=== PATIENT | female | born 1985 | race African-American/Black ===

== ENCOUNTER 2016-05-08 18:22 | Inpatient (IN) | payer OTHER ==
[2016-05-08 20:11] VITALS: BMI 27.6
--- NOTE | 2016-05-08 20:12 | HP ---
Admission [facility] Chief Complaint: REHAB Allergies/Adverse Reactions: Allergies Allergy/AdvReac Type Severity Reaction Status Date / Time No Known Allergies Allergy Verified 05/08/16 20:10 History of Present Illness: 31 Y.O. FEMALE SEEKING REHAB. THE PATIENT REPORTS SHE HAS HAD ISSUES WITH ALCOHOL, COCAINE AND MARIJUANA ABUSE FOR THE LAST YEAR. Exam Limitations: No Limitations - Ebola screening Have you traveled outside of the country in the last 21 days: No (N) Have you had contact with anyone from an Ebola affected area: No Do you have a fever: No - Review of Systems Constitutional: No Symptoms Reported EENT: reports: No Symptoms Reported Respiratory: reports: No Symptoms reported Cardiac: reports: No Symptoms Reported GI: reports: No Symptoms Reported : reports: No Symptoms Reported Musculoskeletal: reports: No Symptoms Reported Integumentary: reports: No Symptoms Reported Neuro: reports: No Symptoms reported Endocrine: reports: No Symptoms Reported Hematology: reports: No Symptoms Reported Psychiatric: reports: Depressed, other (BIPOLAR) Other Systems: Reviewed and Negative Patient History - Patient Medical History Hx Anemia: No Hx Asthma: No Hx Chronic Obstructive Pulmonary Disease (COPD): No Hx Cancer: No Hx Cardiac Disorders: No Hx Congestive Heart Failure: No Hx Hypertension: No Hx Hypercholesterolemia: No Hx Pacemaker: No HX Cerebrovascular Accident: No Hx Seizures: No Hx Dementia: No Hx Diabetes: No Hx Gastrointestinal Disorders: No Hx Liver Disease: No Hx Genitourinary Disorders: No Hx Sexually Transmitted Disorders: No Hx Renal Disease (ESRD): No Hx Thyroid Disease: No Hx Human Immunodeficiency Virus (HIV): No (NEG HX ) Hx Hepatitis C: No Hx Depression: Yes (ON MEDS ) Hx Suicide Attempt: No Hx Bipolar Disorder: Yes (ON MEDS) Hx Schizophrenia: No - Patient Surgical History Past Surgical History: Yes Hx Neurologic Surgery: No Hx Cataract Extraction: No Hx Cardiac Surgery: No Hx Lung Surgery: No Hx Breast Surgery: No Hx Breast Biopsy: No Hx Abdominal Surgery: No Hx Appendectomy: No Hx Cholecystectomy: No Hx Genitourinary Surgery: No Hx Section: Yes (NOVEMBER 2015) Hx Orthopedic Surgery: No Hx Hysterectomy: No Anesthesia Reaction: No - PPD History Previous Implant?: Yes Documented Results: Negative w/o proof Implanted On Prior [facility] Admission?: No PPD to be Administered?: Yes - Reproductive History Patient is a Female of Child Bearing Age (11 -55 yrs old): Yes Last Menstrual Period: 05/08/16 Patient : No - Smoking Cessation Smoking history: Current every day smoker Aproximately how many cigarettes per day: 40 Hx Chewing Tobacco Use: No Initiated information on smoking cessation: Yes 'Breaking Loose' booklet given: 05/08/16 - Substance & Tx. History Hx Alcohol Use: Yes Hx Substance Use: Yes Substance Use Type: Alcohol, Cocaine, Marijuana Hx Substance Use Treatment: Yes (REHAB ) - Substances Abused Alcohol Route: Oral Frequency: Daily Amount used: $5-10 ON LIQUOR Age of first use: 14 Date of Last Use: 05/08/16 Cocaine Route: Inhalation Frequency: 1-2 times per week Amount used: $20 Age of first use: 25 Date of Last Use: 04/30/16 Marijuana/Hashish Route: Smoking Frequency: Daily Amount used: $35 Age of first use: 12 Date of Last Use: 05/08/16 Family Disease History - Family Disease History Family History: Unremarkable Admission Physical Exam BHS - Vital Signs Vital Signs: Last Vital Signs Temp Pulse Resp BP Pulse Ox 96.1 F L 88 20 138/81 05/08/16 20:24 05/08/16 20:24 05/08/16 20:24 05/08/16 20:24 - Physical General Appearance: Yes: No Apparent Distress, Nourished, Appropriately Dressed HEENTM: Yes: Within Normal Limits Respiratory: Yes: Chest Non-Tender, Lungs Clear, Normal Breath Sounds, No Respiratory Distress, No Accessory Muscle Use Neck: Yes: Within Normal Limits Breast: Yes: Breast Exam Deferred Cardiology: Yes: Regular Rhythm, Regular Rate, S1, S2 Abdominal: Yes: Normal Bowel Sounds, Non Tender, Flat Genitourinary: Yes: Within Normal Limits Back: Yes: Normal Inspection Musculoskeletal: Yes: full range of Motion, Gait Steady Extremities: Yes: Normal Inspection, Normal Range of Motion, Non-Tender Neurological: Yes: Fully Oriented, Alert, Normal Mood/Affect, Normal Response Integumentary: Yes: Normal Color, Dry, Warm Lymphatic: Yes: Within Normal Limits - Diagnostic (1) Alcohol dependence with uncomplicated withdrawal Current Visit: Yes Status: Chronic (2) Cocaine dependence, uncomplicated Current Visit: Yes Status: Chronic (3) Cannabis dependence, uncomplicated Current Visit: Yes Status: Chronic (4) Nicotine dependence Current Visit: Yes Status: Chronic Qualifiers: Nicotine product type: cigarettes Cleared for Admission [facility] - Detox or Rehab [facility] Level of Care: Observation Bed Claeared for Rehab Admission: Yes [facility] Breath Alcohol Content Breath Alcohol Content: 0.057 Vital Signs - Vital Signs Vital Signs Refused: No Temperature: 96.1 F Temperature Source: Oral Pulse Rate: 88 Respiratory Rate: 20 Blood Pressure: 138/81 BP Location: Left Arm Blood Pressure Position: Sitting - Height Height: 5 ft 5 in - Weight Weight: 166 lb Weight Measurement Method: Standing Scale Body Mass Index (BMI): 27.6 Urine Pregancy Test - Control Horizontal Line in Upper Control Window?: Yes
[2016-05-08] MEDS ORDERED: guaiFENesin/D-METHORPHAN HB 10 ML UNIT-DOSE CUPS PO PRN (20:24)
[2016-05-08] MEDS ORDERED: MAGNESIUM CITRATE 300 ML BOTTLE PO PRN (20:24)
[2016-05-08] MEDS ORDERED: diphenhydrAMINE HCL 50 MG CAPSULE PO PRN (20:24)
[2016-05-08] MEDS ORDERED: LOPERAMIDE HCL 2 MG CAPSULE PO PRN (20:24)
[2016-05-08] MEDS ORDERED: hydrOXYzine PAMOATE 50 MG CAPSULE (FP) PO PRN (20:24)
[2016-05-08] MEDS ORDERED: P-EPHED 60MG/TRIPROLIDI 2.5MG TABLET PO PRN (20:24)
[2016-05-08] MEDS ORDERED: ACETAMINOPHEN 325 MG TABLET (FP) PO PRN (20:24)
[2016-05-08] MEDS ORDERED: MAG HYDROX/AL HYDROX/SIMETH 30 ML UNIT-DOSE CUP PO PRN (20:24)
[2016-05-08] MEDS ORDERED: MENTHOL/PHENOL 1 EACH UD MM PRN (20:24)
[2016-05-08] MEDS: THIAMINE HCL 100 MG TABLET (FP) PO SCH (23:01)
[2016-05-09 09:52] LABS: URINE APPEARANCE CLEAR; URINE BILIRUBIN NEGATIVE (NEGATIVE); URINE COLOR YELLOW; URINE GLUCOSE (UA) NEGATIVE (NEGATIVE); URINE KETONE NEGATIVE (NEGATIVE); URINE LEUK ESTERASE NEGATIVE (NEGATIVE); URINE NITRITE NEGATIVE (NEGATIVE); URINE PROTEIN NEGATIVE (NEGATIVE); URINE UROBILINOGEN 2.0 E.U/dl E.U./dl (0.2-1.0)
[2016-05-09 10:03] LABS: MCHC 32.6 g/dl (32.0-36.0); MEAN CELL VOLUME 82.8 fl (80-96); MEAN PLT VOLUME 9.1 fl (7.5-11.1); PLATELET COUNT 276 K/MM3 (134-434); RDW 15.9 % (11.6-15.6); WHITE BLOOD COUNT 5.6 K/mm3 (4.0-10.0)
[2016-05-09 10:07] LABS: URINE BLOOD 2+ (NEGATIVE)
[2016-05-09 10:08] LABS: URINE MUCUS RARE; URINE RBC <1 /hpf (0-3); URINE WBC 1 /hpf (3-5)
[2016-05-09 10:10] LABS: ALBUMIN 3.2 g/dl (3.4-5.0); ALK PHOS 83 U/L (45-117); ANION GAP 9 (8-16); BILIRUBIN,TOTAL 0.6 mg/dL (0.2-1.0); CALCIUM 8.5 mg/dL (8.5-10.1); CO2 25 mmol/L (21-32); CREATININE 0.8 mg/dL (0.55-1.02); GLUCOSE,RANDOM 90 mg/dL (74-106); SGOT/AST 12 U/L (15-37); SGPT/ALT 17 U/L (12-78); TOT PROT 6.7 g/dl (6.4-8.2)
[2016-05-09] MEDS: NICOTINE 21 MG/24 HOURS TOPICAL PATCH TD SCH (10:19)
[2016-05-09] MEDS: PARoxetine HCL 10 MG TABLET (FP) PO SCH (10:19)
[2016-05-09] MEDS: PRENATAL VITAMINS W/ FOLIC ACID TABLET (FP) PO SCH (10:20)
[2016-05-09] MEDS: risperiDONE 2 MG TABLET PO SCH ×2 (10:20→21:38)
[2016-05-09 11:24] LABS: HIV 1 & 2 AB NEGATIVE; HIV 1 AGp24 NEGATIVE
[2016-05-09] MEDS: THIAMINE HCL 100 MG TABLET (FP) PO SCH (21:39)
--- NOTE | 2016-05-10 09:53 | HP ---
Psychiatrist Admission - Data Date of interview: 05/10/16 Admission source: Referred by [facility] rehabilitation program and probation office. Identifying data: This is the first admission to [address] [place] [address] for this 31 years old AA female mother of 3 (children are under care of thier grandmother ).She is undomiciled,resides with family member,supported by PA. Medical History: Unremarkable Psychiatric History: First contact with psychiatrist was at 13 years due to acting out,poor attendance in school,oppositional behavior.Patient was admitted to [facility].She was dx with Bipolar disorder,placed on Risperidone with good response.Patient reports 4 more psychiatric hospitalizations,most recent was in 2015 to [facility] due to hypomanic episode.She is currently under psychiatric care at [facility] [place] [facility].Current medications:Risperidone 2 mg po bid and Paxil 10 mg po daily.Patient sees psychiatrist on a monthly basis and therapist once a week. Physical/Sexual Abuse/Trauma History: denies any type of abuse. Vital Signs: Vital Signs - 24 hr 05/10/16 05/10/16 05/10/16 00:30 03:30 06:18 Temperature 98 F Pulse Rate 71 Respiratory 16 16 16 Rate Blood Pressure 132/94 Allergies/Adverse Reactions: Allergies Allergy/AdvReac Type Severity Reaction Status Date / Time No Known Allergies Allergy Verified 05/08/16 20:10 Date of last physical exam: 05/08/16 Concur with the findings of this exam: Yes - Substance Abuse/Tx History Hx Alcohol Use: Yes (drinking since 14 yearsold($5-10 daily on hard liquor)) Hx Substance Use: Yes (marijuana since 12 yo-$35 twice a week,Cocaine since 25 yo($20 daily)) Substance Use Type: Alcohol, Cocaine, Marijuana Hx Substance Use Treatment: Yes (completed 28 days of npatient rehab 8 yo,16 months of sobriety) - Admission Criteria Previous failed treatment: Yes Poor recovery environment: Yes Comorbidities: Yes Lacks judgement: Yes Mental Status Exam - Mental Status Exam Alert and Oriented to: Time, Place, Person Cognitive Function: Grossly Intact Patient Appearance: Well Groomed Mood: Euthymic Affect: Mood Congruent, Normal Range Patient Behavior: Cooperative Speech Pattern: Clear Voice Loudness: Normal Thought Process: Goal Oriented Thought Disorder: Not Present Hallucinations: Denies Suicidal Ideation: Denies Homicidal Ideation: Denies Insight/Judgement: Fair Sleep: Fair Appetite: Good Muscle strength/Tone: Normal Gait/Station: Normal Psychiatric Findings - Problem List ([place] 1, 2,3) (1) Alcohol dependence with uncomplicated withdrawal Current Visit: Yes Status: Chronic (2) Cannabis dependence, uncomplicated Current Visit: Yes Status: Chronic (3) Cocaine dependence, uncomplicated Current Visit: Yes Status: Chronic (4) Nicotine dependence Current Visit: Yes Status: Chronic Qualifiers: Nicotine product type: cigarettes (5) Bipolar affective disorder, most recent episode mixed Current Visit: Yes Status: Chronic - Initial Treatment Plan Initial Treatment Plan: Continue Paxil 10 mg po daily and Risperidone 2 mg po bid.Will monitor program.
[2016-05-10] MEDS: risperiDONE 2 MG TABLET PO SCH ×2 (10:27→21:37)
[2016-05-10] MEDS: PRENATAL VITAMINS W/ FOLIC ACID TABLET (FP) PO SCH (10:27)
[2016-05-10] MEDS: NICOTINE 21 MG/24 HOURS TOPICAL PATCH TD SCH (10:28)
[2016-05-10] MEDS: PARoxetine HCL 10 MG TABLET (FP) PO SCH (11:20)
[2016-05-10] MEDS: THIAMINE HCL 100 MG TABLET (FP) PO SCH (21:37)
[2016-05-10] MEDS: MAGNESIUM HYDROX 2400MG/30ML ORAL SUSPENSION 30 ML CUP PO PRN (21:39)
[2016-05-11] MEDS: NICOTINE 21 MG/24 HOURS TOPICAL PATCH TD SCH (09:20)
[2016-05-11] MEDS: PRENATAL VITAMINS W/ FOLIC ACID TABLET (FP) PO SCH (09:21)
[2016-05-11] MEDS: PARoxetine HCL 10 MG TABLET (FP) PO SCH (09:21)
[2016-05-11] MEDS: risperiDONE 2 MG TABLET PO SCH ×2 (09:21→21:32)
[2016-05-11] MEDS: THIAMINE HCL 100 MG TABLET (FP) PO SCH (21:32)
[2016-05-12] MEDS: NICOTINE 21 MG/24 HOURS TOPICAL PATCH TD SCH (09:13)
[2016-05-12] MEDS: PRENATAL VITAMINS W/ FOLIC ACID TABLET (FP) PO SCH (09:14)
[2016-05-12] MEDS: PARoxetine HCL 10 MG TABLET (FP) PO SCH (09:14)
[2016-05-12] MEDS: risperiDONE 2 MG TABLET PO SCH ×2 (09:14→21:30)
[2016-05-12] MEDS: THIAMINE HCL 100 MG TABLET (FP) PO SCH (21:30)
[2016-05-13] MEDS: risperiDONE 2 MG TABLET PO SCH ×2 (10:30→21:41)
[2016-05-13] MEDS: PRENATAL VITAMINS W/ FOLIC ACID TABLET (FP) PO SCH (10:30)
[2016-05-13] MEDS: PARoxetine HCL 10 MG TABLET (FP) PO SCH (10:30)
[2016-05-13] MEDS: NICOTINE 21 MG/24 HOURS TOPICAL PATCH TD SCH (10:31)
[2016-05-13] MEDS: THIAMINE HCL 100 MG TABLET (FP) PO SCH (21:41)
[2016-05-14] MEDS: PARoxetine HCL 10 MG TABLET (FP) PO SCH (10:05)
[2016-05-14] MEDS: NICOTINE 21 MG/24 HOURS TOPICAL PATCH TD SCH (10:05)
[2016-05-14] MEDS: risperiDONE 2 MG TABLET PO SCH ×2 (10:05→21:38)
[2016-05-14] MEDS: PRENATAL VITAMINS W/ FOLIC ACID TABLET (FP) PO SCH (10:05)
[2016-05-14] MEDS: THIAMINE HCL 100 MG TABLET (FP) PO SCH (21:38)
[2016-05-14 22:46] LABS: URINE APPEARANCE CLOUDY; URINE BILIRUBIN NEGATIVE (NEGATIVE); URINE BLOOD NEGATIVE (NEGATIVE); URINE COLOR DKYELLOW; URINE GLUCOSE (UA) NEGATIVE (NEGATIVE); URINE KETONE NEGATIVE (NEGATIVE); URINE LEUK ESTERASE NEGATIVE (NEGATIVE); URINE NITRITE NEGATIVE (NEGATIVE); URINE PROTEIN NEGATIVE (NEGATIVE); URINE UROBILINOGEN NEGATIVE E.U./dl (0.2-1.0)
[2016-05-15] MEDS: NICOTINE 21 MG/24 HOURS TOPICAL PATCH TD SCH (10:43)
[2016-05-15] MEDS: risperiDONE 2 MG TABLET PO SCH ×2 (10:44→21:32)
[2016-05-15] MEDS: PARoxetine HCL 10 MG TABLET (FP) PO SCH (10:44)
[2016-05-15] MEDS: PRENATAL VITAMINS W/ FOLIC ACID TABLET (FP) PO SCH (10:44)
[2016-05-15] MEDS: IBUPROFEN 400 MG TABLET (FP) PO PRN (17:10)
[2016-05-15] MEDS: THIAMINE HCL 100 MG TABLET (FP) PO SCH (21:31)
[2016-05-15] MEDS: MAGNESIUM HYDROX 2400MG/30ML ORAL SUSPENSION 30 ML CUP PO PRN (21:32)
[2016-05-16] MEDS: PRENATAL VITAMINS W/ FOLIC ACID TABLET (FP) PO SCH (10:19)
[2016-05-16] MEDS: risperiDONE 2 MG TABLET PO SCH ×2 (10:19→21:28)
[2016-05-16] MEDS: NICOTINE 21 MG/24 HOURS TOPICAL PATCH TD SCH (10:19)
[2016-05-16] MEDS: PARoxetine HCL 10 MG TABLET (FP) PO SCH (10:19)
[2016-05-16] MEDS: THIAMINE HCL 100 MG TABLET (FP) PO SCH (21:28)
[2016-05-17] MEDS: risperiDONE 2 MG TABLET PO SCH ×2 (09:25→21:28)
[2016-05-17] MEDS: PRENATAL VITAMINS W/ FOLIC ACID TABLET (FP) PO SCH (09:25)
[2016-05-17] MEDS: PARoxetine HCL 10 MG TABLET (FP) PO SCH (09:25)
[2016-05-17] MEDS: NICOTINE 21 MG/24 HOURS TOPICAL PATCH TD SCH (09:25)
[2016-05-17] MEDS: THIAMINE HCL 100 MG TABLET (FP) PO SCH (21:29)
[2016-05-18] MEDS: PARoxetine HCL 10 MG TABLET (FP) PO SCH (09:53)
[2016-05-18] MEDS: risperiDONE 2 MG TABLET PO SCH ×2 (09:53→21:11)
[2016-05-18] MEDS: PRENATAL VITAMINS W/ FOLIC ACID TABLET (FP) PO SCH (09:53)
[2016-05-18] MEDS: NICOTINE 21 MG/24 HOURS TOPICAL PATCH TD SCH (09:53)
[2016-05-18] MEDS: NICOTINE POLACRILEX 4 MG GUM BC PRN ×2 (12:38→19:05)
[2016-05-18] MEDS: THIAMINE HCL 100 MG TABLET (FP) PO SCH (21:11)
[2016-05-19] MEDS: PRENATAL VITAMINS W/ FOLIC ACID TABLET (FP) PO SCH (09:20)
[2016-05-19] MEDS: risperiDONE 2 MG TABLET PO SCH ×2 (09:20→21:27)
[2016-05-19] MEDS: NICOTINE POLACRILEX 4 MG GUM BC PRN (09:20)
[2016-05-19] MEDS: PARoxetine HCL 10 MG TABLET (FP) PO SCH (09:20)
[2016-05-19] MEDS: NICOTINE 21 MG/24 HOURS TOPICAL PATCH TD SCH (10:16)
[2016-05-19] MEDS: THIAMINE HCL 100 MG TABLET (FP) PO SCH (21:27)
[2016-05-20] MEDS: NICOTINE 21 MG/24 HOURS TOPICAL PATCH TD SCH (10:22)
[2016-05-20] MEDS: risperiDONE 2 MG TABLET PO SCH ×2 (10:23→21:49)
[2016-05-20] MEDS: PRENATAL VITAMINS W/ FOLIC ACID TABLET (FP) PO SCH (10:23)
[2016-05-20] MEDS: PARoxetine HCL 10 MG TABLET (FP) PO SCH (10:23)
--- NOTE | 2016-05-20 10:32 | PN ---
BHS Progress Note Note: Pt. c/o whitish vaginal discharge.She had previously c/o non-specific urinary sx. Microbiology 05/14/16 22:00 Urine - Urine Clean Catch Urine Culture - Final NO GROWTH OBTAINED Urine Test Results Urine Color Dkyellow 05/14/16 22:00 Urine Appearance Cloudy 05/14/16 22:00 Urine pH 5.0 (5.0-8.0) 05/14/16 22:00 Ur Specific [place] 1.026 (1.001-1.035) 05/14/16 22:00 Urine Protein Negative (NEGATIVE) 05/14/16 22:00 Urine Glucose (UA) Negative (NEGATIVE) 05/14/16 22:00 Urine Ketones Negative (NEGATIVE) 05/14/16 22:00 Urine Blood Negative (NEGATIVE) 05/14/16 22:00 Urine Nitrite Negative (NEGATIVE) 05/14/16 22:00 Urine Bilirubin Negative (NEGATIVE) 05/14/16 22:00 Ur Leukocyte Esterase Negative (NEGATIVE) 05/14/16 22:00 Urine RBC <1 /hpf (0-3) 05/09/16 07:30 Urine WBC 1 /hpf (3-5) 05/09/16 07:30 Ur Epithelial Cells Rare /hpf (FEW) 05/09/16 07:30 Urine Mucus Rare 05/09/16 07:30 Dx. : Vaginal yeast P : monistat-7
[2016-05-20] MEDS: NICOTINE POLACRILEX 4 MG GUM BC PRN (10:50)
[2016-05-20] MEDS: THIAMINE HCL 100 MG TABLET (FP) PO SCH (21:49)
[2016-05-20] MEDS: MICONAZOLE NITRATE 2% VAGINAL CREAM 45 GM TUBE VG SCH (21:51)
[2016-05-21] MEDS: PRENATAL VITAMINS W/ FOLIC ACID TABLET (FP) PO SCH (10:36)
[2016-05-21] MEDS: NICOTINE 21 MG/24 HOURS TOPICAL PATCH TD SCH (10:36)
[2016-05-21] MEDS: risperiDONE 2 MG TABLET PO SCH ×2 (10:36→21:25)
[2016-05-21] MEDS: PARoxetine HCL 10 MG TABLET (FP) PO SCH (10:36)
--- NOTE | 2016-05-21 12:10 | PN ---
Psychiatric Progress Note Vital Signs: Vital Signs Period Temp Pulse Resp BP Sys/Hernandez Pulse Ox Last 24 Hr 97.3 F 69 16-18 100/69 Date of Session: 05/21/16 Chief Complaint:: "I want to start Campral" HPI: Patient is addressing alcohol, cocaine, cannabis, nicotine dependence comorbid Bipolar I disorder Current Medications: Active Medications Generic Name Dose Route Start Last Admin Trade Name Freq PRN Reason Stop Dose Admin Acetaminophen 650 mg 05/08/16 20:24 Tylenol - PO Q4H PRN PAIN Al Hydroxide/Mg Hydroxide 30 ml 05/08/16 20:24 Mylanta Oral Suspension - PO Q6H PRN DYSPEPSIA Diphenhydramine HCl 50 mg 05/08/16 20:24 Benadryl - PO HSMR1 PRN INSOMNIA Eucalyptus/Menthol/Phenol/Sorbitol 1 each 05/08/16 20:24 Cepastat Lozenge - MM Q4H PRN SORE THROAT Guaifenesin 10 ml 05/08/16 20:24 Robitussin Dm - PO Q6H PRN COUGH Hydroxyzine Pamoate 50 mg 05/08/16 20:24 Vistaril - PO Q4H PRN AGITATION Ibuprofen 400 mg 05/08/16 20:24 05/15/16 17:10 Motrin - PO 400 mg Q6H PRN Administration SEVERE PAIN Loperamide HCl 4 mg 05/08/16 20:24 Imodium - PO Q6H PRN DIARRHEA Magnesium Citrate 300 ml 05/08/16 20:24 Citroma - PO Q48H PRN CONSTIPATION Magnesium Hydroxide 30 ml 05/08/16 20:24 05/15/16 21:32 Milk Of Magnesia - PO 30 ml DAILY PRN Administration CONSTIPATION Miconazole Nitrate 1 applic 05/20/16 22:00 05/20/16 21:51 Monistat-7 Vaginal Cream - VG 05/26/16 22:01 1 applic HS DANIE Administration Nicotine 21 mg 05/09/16 10:00 05/21/16 10:36 Nicoderm Patch - TD 21 mg DAILY DANIE Administration Nicotine Polacrilex 4 mg 05/08/16 20:24 05/20/16 10:50 Nicorette Gum - BC 4 mg Q2H PRN Administration NICOTINE REPLACEMENT RX Paroxetine HCl 10 mg 05/09/16 10:00 05/21/16 10:36 Paxil - PO 10 mg DAILY DANIE Administration Multivit/Folic Acid/Iron 1 tab 05/09/16 10:00 05/21/16 10:36 Vitamins (Sjr) - PO 1 tab DAILY DANIE Administration Pseudoephedrine/Triprolidine 1 combo 05/08/16 20:24 Actifed - PO TID PRN NASAL CONGESTION Risperidone 2 mg 05/09/16 10:00 05/21/16 10:36 Risperdal - PO 2 mg BID DANIE Administration Thiamine HCl 100 mg 05/08/16 22:00 05/20/16 21:49 Vitamin B1 - PO 100 mg HS DANIE Administration Medication(s) Change(s): add Campral 666 mg po tid Current Side Effect: No Lab tests ordered: No Lab tests reviewed: Yes Provider note:: Patient mainly spoke today about issues involving her addiction , being powerless and her inability to stop drinking without this level of care , she reports she wants to try Campral to help her with craving, discusssed with the patient indications and properteis of Campral, psycheducation provided , patient agreed to try medication. Will start and monitor progress. Total face to face time:: 30 Mental Status Exam - Mental Status Exam Alert and Oriented to: Time, Place, Person Cognitive Function: Good Patient Appearance: Well Groomed Mood: Hopeful Affect: Appropriate, Mood Congruent Patient Behavior: Appropriate, Cooperative Speech Pattern: Clear, Appropriate Voice Loudness: Normal Thought Process: Intact, Goal Oriented Thought Disorder: Not Present Hallucinations: Denies Suicidal Ideation: Denies Homicidal Ideation: Denies Insight/Judgement: Fair Sleep: Fair Appetite: Fair Muscle strength/Tone: Normal Gait/Station: Normal Psychiatric Treatment Plan - Problem List (1) Alcohol dependence with uncomplicated withdrawal Current Visit: Yes (2) Bipolar affective disorder, most recent episode mixed Current Visit: Yes (3) Cannabis dependence, uncomplicated Current Visit: Yes (4) Cocaine dependence, uncomplicated Current Visit: Yes (5) Nicotine dependence Current Visit: Yes Qualifiers: Nicotine product type: cigarettes
[2016-05-21] MEDS: THIAMINE HCL 100 MG TABLET (FP) PO SCH (21:25)
[2016-05-21] MEDS: ACAMPROSATE CALCIUM 333 MG TABLET.DR PO SCH (21:25)
[2016-05-21] MEDS: MICONAZOLE NITRATE 2% VAGINAL CREAM 45 GM TUBE VG SCH (21:26)
[2016-05-22] MEDS: ACAMPROSATE CALCIUM 333 MG TABLET.DR PO SCH ×3 (07:20→21:10)
[2016-05-22] MEDS: NICOTINE 21 MG/24 HOURS TOPICAL PATCH TD SCH (10:11)
[2016-05-22] MEDS: risperiDONE 2 MG TABLET PO SCH ×2 (10:12→21:10)
[2016-05-22] MEDS: PARoxetine HCL 10 MG TABLET (FP) PO SCH (10:12)
[2016-05-22] MEDS: PRENATAL VITAMINS W/ FOLIC ACID TABLET (FP) PO SCH (10:12)
[2016-05-22] MEDS: THIAMINE HCL 100 MG TABLET (FP) PO SCH (21:10)
[2016-05-22] MEDS: MICONAZOLE NITRATE 2% VAGINAL CREAM 45 GM TUBE VG SCH (21:11)
[2016-05-23] MEDS: ACAMPROSATE CALCIUM 333 MG TABLET.DR PO SCH ×3 (06:35→21:14)
[2016-05-23] MEDS: risperiDONE 2 MG TABLET PO SCH ×2 (09:57→21:14)
[2016-05-23] MEDS: PRENATAL VITAMINS W/ FOLIC ACID TABLET (FP) PO SCH (09:57)
[2016-05-23] MEDS: NICOTINE 21 MG/24 HOURS TOPICAL PATCH TD SCH (09:57)
[2016-05-23] MEDS: PARoxetine HCL 10 MG TABLET (FP) PO SCH (09:57)
[2016-05-23] MEDS: NICOTINE POLACRILEX 4 MG GUM BC PRN (18:37)
[2016-05-23] MEDS: MICONAZOLE NITRATE 2% VAGINAL CREAM 45 GM TUBE VG SCH (21:14)
[2016-05-23] MEDS: THIAMINE HCL 100 MG TABLET (FP) PO SCH (21:14)
[2016-05-24] MEDS: ACAMPROSATE CALCIUM 333 MG TABLET.DR PO SCH ×3 (06:50→21:29)
[2016-05-24] MEDS: PRENATAL VITAMINS W/ FOLIC ACID TABLET (FP) PO SCH (10:33)
[2016-05-24] MEDS: NICOTINE 21 MG/24 HOURS TOPICAL PATCH TD SCH (10:33)
[2016-05-24] MEDS: risperiDONE 2 MG TABLET PO SCH ×2 (10:33→21:29)
[2016-05-24] MEDS: PARoxetine HCL 10 MG TABLET (FP) PO SCH (10:34)
[2016-05-24] MEDS: NICOTINE POLACRILEX 4 MG GUM BC PRN ×3 (10:35→17:43)
[2016-05-24] MEDS: BACITRACIN 0.9 GM PACKET TP SCH (21:29)
[2016-05-24] MEDS: MICONAZOLE NITRATE 2% VAGINAL CREAM 45 GM TUBE VG SCH (21:30)
[2016-05-24] MEDS: THIAMINE HCL 100 MG TABLET (FP) PO SCH (21:30)
[2016-05-25] MEDS: ACAMPROSATE CALCIUM 333 MG TABLET.DR PO SCH ×3 (06:32→21:18)
[2016-05-25] MEDS: NICOTINE 21 MG/24 HOURS TOPICAL PATCH TD SCH (09:18)
[2016-05-25] MEDS: PARoxetine HCL 10 MG TABLET (FP) PO SCH (09:18)
[2016-05-25] MEDS: BACITRACIN 0.9 GM PACKET TP SCH ×2 (09:18→21:18)
[2016-05-25] MEDS: PRENATAL VITAMINS W/ FOLIC ACID TABLET (FP) PO SCH (09:18)
[2016-05-25] MEDS: IBUPROFEN 400 MG TABLET (FP) PO PRN ×2 (09:18→21:18)
[2016-05-25] MEDS: risperiDONE 2 MG TABLET PO SCH ×2 (09:18→21:18)
[2016-05-25] MEDS: THIAMINE HCL 100 MG TABLET (FP) PO SCH (21:18)
[2016-05-25] MEDS: MICONAZOLE NITRATE 2% VAGINAL CREAM 45 GM TUBE VG SCH (21:18)
[2016-05-25] MEDS: NICOTINE POLACRILEX 4 MG GUM BC PRN (21:20)
[2016-05-26] MEDS: ACAMPROSATE CALCIUM 333 MG TABLET.DR PO SCH ×3 (06:52→21:21)
[2016-05-26] MEDS: PARoxetine HCL 10 MG TABLET (FP) PO SCH (10:27)
[2016-05-26] MEDS: risperiDONE 2 MG TABLET PO SCH ×2 (10:27→21:21)
[2016-05-26] MEDS: PRENATAL VITAMINS W/ FOLIC ACID TABLET (FP) PO SCH (10:27)
[2016-05-26] MEDS: NICOTINE 21 MG/24 HOURS TOPICAL PATCH TD SCH (10:27)
[2016-05-26] MEDS: BACITRACIN 0.9 GM PACKET TP SCH ×2 (10:28→21:20)
[2016-05-26] MEDS: NICOTINE POLACRILEX 4 MG GUM BC PRN ×2 (12:12→21:22)
[2016-05-26] MEDS: MICONAZOLE NITRATE 2% VAGINAL CREAM 45 GM TUBE VG SCH (21:20)
[2016-05-26] MEDS: THIAMINE HCL 100 MG TABLET (FP) PO SCH (21:21)
[2016-05-27] MEDS: ACAMPROSATE CALCIUM 333 MG TABLET.DR PO SCH ×3 (07:00→21:27)
[2016-05-27] MEDS: IBUPROFEN 400 MG TABLET (FP) PO PRN (07:01)
[2016-05-27] MEDS: PARoxetine HCL 10 MG TABLET (FP) PO SCH (10:18)
[2016-05-27] MEDS: risperiDONE 2 MG TABLET PO SCH ×2 (10:18→21:27)
[2016-05-27] MEDS: BACITRACIN 0.9 GM PACKET TP SCH ×2 (10:18→21:27)
[2016-05-27] MEDS: PRENATAL VITAMINS W/ FOLIC ACID TABLET (FP) PO SCH (10:18)
[2016-05-27] MEDS: NICOTINE 21 MG/24 HOURS TOPICAL PATCH TD SCH (10:19)
[2016-05-27] MEDS: THIAMINE HCL 100 MG TABLET (FP) PO SCH (21:27)
[2016-05-27] MEDS: MAGNESIUM HYDROX 2400MG/30ML ORAL SUSPENSION 30 ML CUP PO PRN (21:52)
[2016-05-28] MEDS: ACAMPROSATE CALCIUM 333 MG TABLET.DR PO SCH ×3 (06:52→21:29)
[2016-05-28] MEDS: NICOTINE 21 MG/24 HOURS TOPICAL PATCH TD SCH (10:47)
[2016-05-28] MEDS: BACITRACIN 0.9 GM PACKET TP SCH ×2 (10:48→21:29)
[2016-05-28] MEDS: risperiDONE 2 MG TABLET PO SCH ×2 (10:48→21:29)
[2016-05-28] MEDS: PRENATAL VITAMINS W/ FOLIC ACID TABLET (FP) PO SCH (10:48)
[2016-05-28] MEDS: PARoxetine HCL 10 MG TABLET (FP) PO SCH (10:48)
[2016-05-28] MEDS: THIAMINE HCL 100 MG TABLET (FP) PO SCH (21:29)
[2016-05-29] MEDS: ACAMPROSATE CALCIUM 333 MG TABLET.DR PO SCH ×3 (06:33→21:16)
[2016-05-29] MEDS: risperiDONE 2 MG TABLET PO SCH ×2 (10:23→21:16)
[2016-05-29] MEDS: PRENATAL VITAMINS W/ FOLIC ACID TABLET (FP) PO SCH (10:23)
[2016-05-29] MEDS: BACITRACIN 0.9 GM PACKET TP SCH ×2 (10:23→21:16)
[2016-05-29] MEDS: NICOTINE POLACRILEX 4 MG GUM BC PRN (10:23)
[2016-05-29] MEDS: PARoxetine HCL 10 MG TABLET (FP) PO SCH (10:23)
[2016-05-29] MEDS: NICOTINE 21 MG/24 HOURS TOPICAL PATCH TD SCH (10:24)
[2016-05-29] MEDS: THIAMINE HCL 100 MG TABLET (FP) PO SCH (21:16)
[2016-05-30] MEDS: ACAMPROSATE CALCIUM 333 MG TABLET.DR PO SCH ×3 (06:36→21:43)
[2016-05-30] MEDS: BACITRACIN 0.9 GM PACKET TP SCH ×2 (10:46→21:44)
[2016-05-30] MEDS: NICOTINE 21 MG/24 HOURS TOPICAL PATCH TD SCH (10:46)
[2016-05-30] MEDS: PARoxetine HCL 10 MG TABLET (FP) PO SCH (10:46)
[2016-05-30] MEDS: risperiDONE 2 MG TABLET PO SCH ×2 (10:47→21:43)
[2016-05-30] MEDS: PRENATAL VITAMINS W/ FOLIC ACID TABLET (FP) PO SCH (10:47)
[2016-05-30] MEDS: THIAMINE HCL 100 MG TABLET (FP) PO SCH (21:43)
[2016-05-30] MEDS: MAGNESIUM HYDROX 2400MG/30ML ORAL SUSPENSION 30 ML CUP PO PRN (21:45)
[2016-05-31] MEDS: ACAMPROSATE CALCIUM 333 MG TABLET.DR PO SCH ×3 (06:20→21:37)
[2016-05-31] MEDS: BACITRACIN 0.9 GM PACKET TP SCH ×2 (10:29→21:37)
[2016-05-31] MEDS: PARoxetine HCL 10 MG TABLET (FP) PO SCH (10:29)
[2016-05-31] MEDS: NICOTINE 21 MG/24 HOURS TOPICAL PATCH TD SCH (10:29)
[2016-05-31] MEDS: PRENATAL VITAMINS W/ FOLIC ACID TABLET (FP) PO SCH (10:29)
[2016-05-31] MEDS: risperiDONE 2 MG TABLET PO SCH ×2 (10:29→21:37)
[2016-05-31] MEDS: THIAMINE HCL 100 MG TABLET (FP) PO SCH (21:37)
[2016-06-01] MEDS: ACAMPROSATE CALCIUM 333 MG TABLET.DR PO SCH ×3 (06:51→21:38)
[2016-06-01] MEDS: PRENATAL VITAMINS W/ FOLIC ACID TABLET (FP) PO SCH (10:16)
[2016-06-01] MEDS: NICOTINE 21 MG/24 HOURS TOPICAL PATCH TD SCH (10:18)
[2016-06-01] MEDS: BACITRACIN 0.9 GM PACKET TP SCH ×2 (10:18→21:38)
[2016-06-01] MEDS: risperiDONE 2 MG TABLET PO SCH ×2 (10:20→21:38)
[2016-06-01] MEDS: PARoxetine HCL 10 MG TABLET (FP) PO SCH (12:25)
[2016-06-01] MEDS: THIAMINE HCL 100 MG TABLET (FP) PO SCH (21:38)
[2016-06-02] MEDS: ACAMPROSATE CALCIUM 333 MG TABLET.DR PO SCH ×3 (06:31→21:33)
[2016-06-02] MEDS: risperiDONE 2 MG TABLET PO SCH ×2 (10:19→21:33)
[2016-06-02] MEDS: PRENATAL VITAMINS W/ FOLIC ACID TABLET (FP) PO SCH (10:19)
[2016-06-02] MEDS: PARoxetine HCL 10 MG TABLET (FP) PO SCH (10:19)
[2016-06-02] MEDS: BACITRACIN 0.9 GM PACKET TP SCH ×2 (10:20→21:34)
[2016-06-02] MEDS: NICOTINE 21 MG/24 HOURS TOPICAL PATCH TD SCH (10:20)
[2016-06-02] MEDS: THIAMINE HCL 100 MG TABLET (FP) PO SCH (21:33)
[2016-06-03] MEDS: ACAMPROSATE CALCIUM 333 MG TABLET.DR PO SCH ×3 (06:00→21:23)
[2016-06-03] MEDS: NICOTINE 21 MG/24 HOURS TOPICAL PATCH TD SCH (10:07)
[2016-06-03] MEDS: PARoxetine HCL 10 MG TABLET (FP) PO SCH (10:08)
[2016-06-03] MEDS: BACITRACIN 0.9 GM PACKET TP SCH ×2 (10:08→21:25)
[2016-06-03] MEDS: PRENATAL VITAMINS W/ FOLIC ACID TABLET (FP) PO SCH (10:08)
[2016-06-03] MEDS: risperiDONE 2 MG TABLET PO SCH ×2 (10:08→21:23)
[2016-06-03] MEDS: THIAMINE HCL 100 MG TABLET (FP) PO SCH (21:24)
[2016-06-03] MEDS: MAGNESIUM HYDROX 2400MG/30ML ORAL SUSPENSION 30 ML CUP PO PRN (22:54)
[2016-06-04] MEDS: ACAMPROSATE CALCIUM 333 MG TABLET.DR PO SCH ×3 (06:22→21:28)
[2016-06-04] MEDS: risperiDONE 2 MG TABLET PO SCH ×2 (10:13→21:28)
[2016-06-04] MEDS: PARoxetine HCL 10 MG TABLET (FP) PO SCH (10:13)
[2016-06-04] MEDS: PRENATAL VITAMINS W/ FOLIC ACID TABLET (FP) PO SCH (10:13)
[2016-06-04] MEDS: BACITRACIN 0.9 GM PACKET TP SCH ×2 (10:13→21:28)
[2016-06-04] MEDS: NICOTINE 21 MG/24 HOURS TOPICAL PATCH TD SCH (10:13)
[2016-06-04] MEDS: THIAMINE HCL 100 MG TABLET (FP) PO SCH (21:28)
[2016-06-05] MEDS: ACAMPROSATE CALCIUM 333 MG TABLET.DR PO SCH (06:39)
[2016-06-05 07:09] VITALS: BP 105/66; PULSE 81; TEMP 97.8
--- NOTE | 2016-06-05 10:35 | PN ---
Psychiatric Progress Note Vital Signs: Vital Signs Period Temp Pulse Resp BP Sys/Hernandez Pulse Ox Last 24 Hr 97.8 F 81 18-18 105/66 Date of Session: 06/05/16 Chief Complaint:: Discharge visit HPI: Patient addressed Alcohol,Cocaine and Cannabis dependence comorbid with Bipolar disorder. Current Side Effect: No Lab tests ordered: No Lab tests reviewed: Yes Provider note:: The patient completed this program today.She has met her teratment goals and will continue to address her issues at [facility] rehabilitation [facility].Patient continues to find that current medications:Paxil 10 mg po daily and Risperidone 2 mg po bid help her to reduce depression, anxiety and mood instability.Scripts for 30 days provided. Patient identifies areas of difficulties and ways,mechanisms to prevent relapse.Coping skills, support system to maintain recovery has been discussed with the patient. Patient is stable for discharge today. Total face to face time:: 30 Mental Status Exam - Mental Status Exam Alert and Oriented to: Time, Place, Person Cognitive Function: Grossly Intact Patient Appearance: Well Groomed Mood: Euthymic Affect: Mood Congruent Patient Behavior: Cooperative Speech Pattern: Clear Voice Loudness: Normal Thought Process: Goal Oriented Thought Disorder: Not Present Hallucinations: Denies Suicidal Ideation: Denies Homicidal Ideation: Denies Insight/Judgement: Fair Sleep: Fair Appetite: Fair Muscle strength/Tone: Normal Gait/Station: Normal Psychiatric Treatment Plan - Problem List (4) Nicotine dependence Qualifiers: Nicotine product type: cigarettes
== END 2016-06-05 08:29 | disposition home or self-care (01) | DRG 772 ==
LOC: YASAS 18:22 → Y6N 19:21 → Y3E 21:28
PROVIDERS: ADMIT Internal Medicine Addiction Medicine; ATTEND Psychiatry & Neurology Psychiatry
PROC: HZ42ZZZ Group Counseling for Substance Abuse Treatment, Cognitive-Behavioral (ICD-10-PCS; principal; 2016-05-08)
DX: F10.230 Alcohol dependence with withdrawal, uncomplicated (principal); F14.20 Cocaine dependence, uncomplicated; F12.20 Cannabis dependence, uncomplicated; F17.210 Nicotine dependence, cigarettes, uncomplicated; F31.60 Bipolar disorder, current episode mixed, unspecified; B37.3 Candidiasis of vulva and vagina
CPT/HCPCS: 36415; 80053; 81003; 81015; 85027; 86593; 87086; 87389; 93005; 93010

== ENCOUNTER 2017-08-18 20:19 | Inpatient (IN) | payer OTHER ==
[2017-08-18 20:57] VITALS: BMI 22.4
--- NOTE | 2017-08-18 21:59 | HP ---
COWS - Scale Resting Pulse: 2= [place] 101-120 Sweatin= Chills/Flushing Restless Observation: 1= Difficult to Sit Still Pupil Size: 0= Normal to Room Light Bone or Joint Aches: 1= Mild Discomfort Runny Nose/ Eye Tearin= Nasal Congestion GI Upset > 30mins: 0= None Tremor Observation: 2= Slight Tremor Visible Yawning Observation: 0= None Anxiety or Irritability: 1=Feels Anxious/Irritable Goose Flesh Skin: 3=Piloerection COWS Score: 12 Admission ROS S - HPI Chief Complaint: heroin withdrawal symptoms Allergies/Adverse Reactions: Allergies Allergy/AdvReac Type Severity Reaction Status Date / Time No Known Allergies Allergy Verified 08/18/17 21:25 History of Present Illness: 32 yo female with hx of heroin, nicotine, cocaine, and marijuana dependence is here seeking detox. Reports currently on parole for robbery. Reports attempted to start suboxone program but did not like the way it made her feel, and started to sell the prescribe Suboxone. PMHX: bipolar, insomnia. Denies suicidal / homicidal ideation or suicide attempts. Denies history of seizure or overdose. After care plans: attend rehab. Longest period of sobriety 16 months. - Ebola screening Have you been sick,other than usual withdrawal symptoms: No - Review of Systems Constitutional: Chills, Loss of Appetite, Unintentional Wgt. Loss (30 lbs weight lost over the past 6 months) EENT: reports: Nose Congestion Cardiac: reports: No Symptoms Reported GI: reports: Poor Appetite, Poor Fluid Intake, Indigestion Musculoskeletal: reports: Back Pain (low back), Joint Pain (both knees) Integumentary: reports: Sweating Neuro: reports: Headache Endocrine: reports: Increased Thirst Hematology: reports: Anemia Psychiatric: reports: Orientated x3, Anxious, Depressed Patient History - Patient Medical History Hx Anemia: No Hx Asthma: No Hx Chronic Obstructive Pulmonary Disease (COPD): No Hx Cancer: No Hx Cardiac Disorders: No Hx Congestive Heart Failure: No Hx Hypertension: No Hx Hypercholesterolemia: No Hx Pacemaker: No HX Cerebrovascular Accident: No Hx Seizures: No Hx Dementia: No Hx Diabetes: No Hx Gastrointestinal Disorders: No Hx Liver Disease: No Hx Genitourinary Disorders: No Hx Sexually Transmitted Disorders: No Hx Renal Disease (ESRD): No Hx Thyroid Disease: No Hx Human Immunodeficiency Virus (HIV): No (NEG HX, last tested May 2017) Hx Hepatitis C: No Hx Depression: Yes Hx Suicide Attempt: No Hx Bipolar Disorder: Yes (ON MEDS) Hx Schizophrenia: No - Patient Surgical History Past Surgical History: Yes Hx Neurologic Surgery: No Hx Cataract Extraction: No Hx Cardiac Surgery: No Hx Lung Surgery: No Hx Breast Surgery: No Hx Breast Biopsy: No Hx Abdominal Surgery: No Hx Appendectomy: No Hx Cholecystectomy: No Hx Genitourinary Surgery: No Hx Section: Yes (NOVEMBER 2015) Hx Orthopedic Surgery: No Hx Hysterectomy: No Anesthesia Reaction: No - PPD History Previous Implant?: Yes Documented Results: Negative w/proof Date: 05/10/16 PPD to be Administered?: Yes - Reproductive History Patient is a Female of Child Bearing Age (11 -55 yrs old): Yes Last Menstrual Period: 05/08/16 Patient : Yes - Smoking Cessation Smoking history: Current every day smoker Aproximately how many cigarettes per day: 40 Hx Chewing Tobacco Use: No Initiated information on smoking cessation: Yes 'Breaking Loose' booklet given: 08/18/17 - Substance & Tx. History Hx Alcohol Use: No Hx Substance Use: Yes Substance Use Type: Cocaine, Heroin, Marijuana Hx Substance Use Treatment: No (As per patient she has not attended inpatient detox) - Substances Abused Heroin Route: Smoking Frequency: Daily Amount used: 8-12 BAGS Age of first use: 31 Date of Last Use: 08/18/17 Marijuana/Hashish Route: Smoking Frequency: Daily Amount used: 2 blunts Age of first use: 12 Date of Last Use: 08/17/17 Cocaine Route: Inhalation Frequency: 1-3 times last 30 days Amount used: $20 Age of first use: 18 Date of Last Use: 08/16/17 Family Disease History - Family Disease History Family Disease History: Other: Father (alive and well ), Mother (alive and well ) Admission Physical Exam BHS - Vital Signs Vital Signs: Vital Signs - 24 hr 08/18/17 20:55 Temperature 97.6 F Pulse Rate 110 H Respiratory 18 Rate Blood Pressure 130/82 - Physical General Appearance: Yes: Disheveled, Sweating, Anxious HEENTM: Yes: EOMI, Hearing grossly Normal, Normal ENT Inspection, Normocephalic , Normal Voice, RICHARD, Pharynx Normal, Tm's normal Respiratory: Yes: Chest Non-Tender, Lungs Clear, Normal Breath Sounds, No Respiratory Distress, No Accessory Muscle Use Neck: Yes: No masses,lesions,Nodules, Trachea in good position Breast: Yes: Breast Exam Deferred Cardiology: Yes: Regular Rhythm, Tachycardia Abdominal: Yes: Normal Bowel Sounds, Non Tender, Flat, Soft Genitourinary: Yes: Within Normal Limits Back: Yes: Normal Inspection Musculoskeletal: Yes: full range of Motion, Gait Steady, Pelvis Stable, Back pain Extremities: Yes: Normal Capillary Refill, Normal Inspection, Normal Range of Motion, Tremors Neurological: Yes: cost reduction engineer II-XII NML intact, Fully Oriented, Alert, Motor Strength 5/5, Depressed Affect Integumentary: Yes: Normal Color, Warm, Moist Lymphatic: Yes: Within Normal Limits - Diagnostic (1) Opioid dependence with withdrawal Current Visit: Yes Status: Acute (2) Cannabis dependence, uncomplicated Current Visit: Yes Status: Chronic (3) Cocaine dependence, uncomplicated Current Visit: Yes Status: Chronic (4) Nicotine dependence Current Visit: Yes Status: Chronic Qualifiers: Nicotine product type: cigarettes (5) Dehydration Current Visit: Yes Status: Acute (6) Psychiatric disorder Current Visit: Yes Status: Suspected Cleared for Admission [facility] - Detox or Rehab [facility] Level of Care: Medically Managed Detox Regimen/Protocol: Methadone [facility] Breath Alcohol Content Breath Alcohol Content: 0 Urine Pregancy Test - Result Urine Test Results: Negative- NO Line Present Urine Drug Screen - Results Drug Screen Negative: No Urine Drug Screen Results: THC-Marijuana, LUCRECIA-Cocaine, OPI-Opiates, BZO- Benzodiazepines
[2017-08-18] MEDS ORDERED: MELATONIN 5 MG TABLETS PO PRN (22:00)
[2017-08-18] MEDS ORDERED: MAGNESIUM CITRATE 300 ML BOTTLE PO PRN (22:05)
[2017-08-18] MEDS ORDERED: MAG HYDROX/AL HYDROX/SIMETH 30 ML UNIT-DOSE CUP PO PRN (22:05)
[2017-08-18] MEDS ORDERED: hydrOXYzine PAMOATE 50 MG CAPSULE (FP) PO PRN (22:05)
[2017-08-18] MEDS ORDERED: MAGNESIUM HYDROX 2400MG/30ML ORAL SUSPENSION 30 ML CUP PO PRN (22:05)
[2017-08-18] MEDS ORDERED: METHADONE HCL 10 MG TABLET (FOR DETOX USE ONLY) PO ONE ×2 (22:05→23:00)
[2017-08-18] MEDS ORDERED: guaiFENesin/D-METHORPHAN HB 10 ML UNIT-DOSE CUPS PO PRN (22:05)
[2017-08-18] MEDS ORDERED: LOPERAMIDE HCL 2 MG CAPSULE PO PRN (22:05)
[2017-08-18] MEDS ORDERED: MENTHOL/PHENOL 1 EACH UD MM PRN (22:05)
[2017-08-18] MEDS ORDERED: ACETAMINOPHEN 325 MG TABLET (FP) PO PRN (22:05)
[2017-08-18] MEDS ORDERED: P-EPHED 60MG/TRIPROLIDI 2.5MG TABLET PO PRN (22:05)
[2017-08-18] MEDS ORDERED: NICOTINE POLACRILEX 2 MG GUM BC PRN (22:05)
[2017-08-18] MEDS: diazePAM 5 MG TABLET PO PRN (22:49)
[2017-08-19] MEDS: diazePAM 5 MG TABLET PO PRN ×2 (05:52→10:28)
[2017-08-19] MEDS: IBUPROFEN 400 MG TABLET (FP) PO PRN ×2 (05:52→23:16)
--- NOTE | 2017-08-19 09:43 | PN ---
S COWS - Scale Resting Pulse: 2= [place] 101-120 Sweatin= Chills/Flushing Restless Observation: 0= Sits Still Pupil Size: 1= Pupils >than Normal Bone or Joint Aches: 1= Mild Discomfort Runny Nose/ Eye Tearin= Nasal Congestion GI Upset > 30mins: 1= Stomach Cramp Tremor Observation of Outstretched Hands: 1= Tremor [place], Not Seen Yawning Observation: 2= >3x During Session Anxiety or Irritability: 1=Feels Anxious/Irritable Goose Flesh Skin: 0=Smooth Skin COWS Score: 11 BHS Progress Note (SOAP) Subjective: joint pain muscle ache sweat tremor restlessness denies trouble breathing denies alteration in urination Objective: 08/19/17 09:47 Vital Signs Temperature 102.2 F H 08/19/17 06:27 Pulse Rate 106 H 08/19/17 06:27 Respiratory Rate 16 08/19/17 06:27 Blood Pressure 126/73 08/19/17 06:27 O2 Sat by Pulse Oximetry (%) lab not available at this time cardiac S1S2 sinus tachychardia denies chest pain denies palpitation lung clear bilaterally no shortness of breath abdomen soft none tenderness tolerates food and fluid well skin intact warm moist sweat extremities full range of motion neuro alert oriented x 3 speech clearly Assessment: 08/19/17 09:50 withdrawal sx rule out unknown fever Plan: continue detox chest x ray
[2017-08-19] MEDS ORDERED: METHADONE HCL 10 MG TABLET (FOR DETOX USE ONLY) PO ONE (10:00)
[2017-08-19 10:10] LABS: HEMATOCRIT 37.1 % (32.4-45.2); HEMOGLOBIN 12.2 GM/dL (10.7-15.3); MCH 26.8 pg (25.7-33.7); MCHC 32.7 g/dl (32.0-36.0); MEAN PLT VOLUME 9.9 fl (7.5-11.1); PLATELET COUNT 192 K/MM3 (134-434); RBC 4.53 M/mm3 (3.60-5.2); RDW 15.3 % (11.6-15.6); WHITE BLOOD COUNT 9.6 K/mm3 (4.0-10.0)
[2017-08-19 10:19] LABS: ALBUMIN 3.3 g/dl (3.4-5.0); ANION GAP 8 (8-16); BLOOD UREA NITROGEN 15 mg/dL (7-18); CALCIUM 7.9 mg/dL (8.5-10.1); CHLORIDE 101 mmol/L (98-107); CO2 27 mmol/L (21-32); GLUCOSE,RANDOM 94 mg/dL (74-106); SODIUM 136 mmol/L (136-145)
[2017-08-19 10:23] LABS: ALK PHOS 76 U/L (45-117); BILIRUBIN,TOTAL 0.3 mg/dL (0.2-1.0); SGOT/AST 12 U/L (15-37); SGPT/ALT 16 U/L (12-78); TOT PROT 7.3 g/dl (6.4-8.2)
[2017-08-19] MEDS: PRENATAL VITAMINS W/ FOLIC ACID TABLET (FP) PO SCH (10:28)
[2017-08-19] MEDS: NICOTINE 14 MG/24 HOURS TOPICAL PATCH TD SCH (10:29)
--- NOTE | 2017-08-19 11:00 | CONSULT ---
[facility] Psychiatric Consult - Data Date of interview: 08/19/17 Admission source: [facility] Identifying data: Pt. 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 This is patient's first admission to detox. Pt. admitted to detox for marijuana, opiated, and cocaine dependence. Substance Abuse History: Following information confirmed with Ms. Malik: - Substance & Tx. History. Hx Alcohol Use: No. Hx Substance Use: Yes. Substance Use Type: Cocaine, Heroin, Marijuana. Hx Substance Use Treatment: No (As per patient she has not attended inpatient detox). - Substances Abused. * * Heroin. Route: Smoking. Frequency: Daily. Amount used: 8-12 BAGS. Age of first use: 31. Date of Last Use: 08/18/17. Marijuana/Hashish. Route: Smoking. Frequency: Daily. Amount used: 2 blunts. Age of first use: 12. Date of Last Use: 08/17/17. Cocaine. Route: Inhalation. Frequency: 1-3 times last 30 days. Amount used: $20. Age of first use: 18. Date of Last Use : 08/16/17 Medical History: Denies. Psychiatric History: Pt. irritable this morning. Pt. reports one psychiatric hospitalization as a teenager at [facility]. Denies psychiatric hospitalizations as an adult. Outpatient care is provided at the [facility] in [place]. Diagnosis of Bipolar disorder. Pt. reports taking Paxil 20mg qhs + Risperdal 6mg qhs. Pt. denies h/o suicide attempt. Pt. currently denies suicidal and homicidal ideation. Physical/Sexual Abuse/Trauma History: Denies. Mental Status Exam - Mental Status Exam Alert and Oriented to: Time, Place Cognitive Function: Good Patient Appearance: Unkempt Mood: Withdrawn, Irritable Affect: Mood Congruent Patient Behavior: Cooperative, Agitated (Pt irritable and agitated but able to stay in control and cooperate with interview. ) Speech Pattern: Appropriate Voice Loudness: Normal Thought Process: Goal Oriented Thought Disorder: Not Present Hallucinations: Denies Suicidal Ideation: Denies Homicidal Ideation: Denies Insight/Judgement: Poor Sleep: Fair Appetite: Fair Muscle strength/Tone: Normal Gait/Station: Other (Did not observe patient's gait.) Psychiatric Findings - Problem List ([place] 1, 2,3) (1) Opioid dependence with withdrawal Current Visit: Yes Status: Acute (2) Cannabis dependence, uncomplicated Current Visit: Yes Status: Acute (3) Cocaine dependence, uncomplicated Current Visit: Yes Status: Acute (4) Nicotine dependence Current Visit: Yes Status: Chronic Qualifiers: Nicotine product type: cigarettes (5) Bipolar disorder Current Visit: Yes Status: Chronic Comment: History. (6) Drug-induced mood disorder Current Visit: Yes Status: Acute - Initial Treatment Plan Initial Treatment Plan: Psychoeducation provided. Detoxification provided. [facility] pharmacy called at [address] [place] [address] on [phone]. As per pharmacist patient is prescribed Risperdal 6mg qhs + Paxil 20mg qhs and most recent prescription was give on 06/04/17. Will order risperdal 2mg qhs + risperdal 1mg PO daily + Paxil 20mg qhs. Verbal consent given. Will continue to monitor.
[2017-08-19] MEDS: CLINDAMYCIN HCL 150 MG CAPSULE (FP) PO SCH ×2 (14:16→22:11)
--- NOTE | 2017-08-19 16:46 | EKG ---
Test Reason : Blood Pressure : / mmHG Vent. Rate : 104 BPM Atrial Rate : 104 BPM P-R Int : 154 ms QRS Dur : 076 ms QT Int : 314 ms P-R-T Axes : 073 044 060 degrees QTc Int : 412 ms SINUS TACHYCARDIA RIGHT ATRIAL ENLARGEMENT BORDERLINE ECG NO PREVIOUS ECGS AVAILABLE Confirmed by MD Malka, Jose Cruz ([id number]) on 08/19/2017 4:46:40 PM Referred By: Confirmed By:Jose Cruz Ace MD
[2017-08-19 19:55] LABS: URINE APPEARANCE TURBID; URINE BILIRUBIN NEGATIVE (<2.0 mg/dL); URINE BLOOD NEGATIVE (NEGATIVE); URINE COLOR YELLOW; URINE GLUCOSE (UA) NEGATIVE (NEGATIVE); URINE KETONE NEGATIVE (NEGATIVE); URINE LEUK ESTERASE NEGATIVE (NEGATIVE); URINE NITRITE NEGATIVE (NEGATIVE); URINE PROTEIN 2+ (NEGATIVE)
[2017-08-19 20:14] LABS: URINE MUCUS RARE
[2017-08-19] MEDS: THIAMINE HCL 100 MG TABLET (FP) PO SCH (22:10)
[2017-08-19] MEDS: PARoxetine HCL 20 MG TABLET (FP) PO SCH (22:10)
[2017-08-19] MEDS: risperiDONE 2 MG TABLET PO SCH (22:10)
--- NOTE | 2017-08-19 23:52 | PN ---
S Progress Note Note: Vital Signs Temperature 102.7 F H 08/19/17 22:31 Pulse Rate 107 H 08/19/17 22:31 Respiratory Rate 19 08/19/17 22:31 Blood Pressure 122/75 08/19/17 22:31 O2 Sat by Pulse Oximetry (%) Patient with elevated temp, currently on Clarithromycin for pneumonia Patient to take Ibuprofen 400mg PRN Increase fluids If fever persist patient to be transfer to [facility] [place] for further evaluation.
[2017-08-20] MEDS ORDERED: METHADONE HCL 5 MG TABLET (FOR DETOX USE ONLY) PO ONE (10:00)
[2017-08-20] MEDS ORDERED: risperiDONE 1 MG TABLET (FP) PO SCH (10:00)
[2017-08-20] MEDS: diazePAM 5 MG TABLET PO PRN ×2 (10:19→22:19)
[2017-08-20] MEDS: CLINDAMYCIN HCL 150 MG CAPSULE (FP) PO SCH ×2 (10:20→22:19)
[2017-08-20] MEDS: PRENATAL VITAMINS W/ FOLIC ACID TABLET (FP) PO SCH (10:20)
[2017-08-20] MEDS: NICOTINE 14 MG/24 HOURS TOPICAL PATCH TD SCH (10:20)
--- NOTE | 2017-08-20 11:42 | PN ---
BHS COWS - Scale Resting Pulse: 2= [place] 101-120 Sweatin= Chills/Flushing Restless Observation: 1= Difficult to Sit Still Pupil Size: 0= Normal to Room Light Bone or Joint Aches: 1= Mild Discomfort Runny Nose/ Eye Tearin= Nasal Congestion GI Upset > 30mins: 2= Nausea/Diarrhea Tremor Observation of Outstretched Hands: 1= Tremor [place], Not Seen Yawning Observation: 1= 1-2x During Session Anxiety or Irritability: 2=Irritable/Anxious Goose Flesh Skin: 3=Piloerection COWS Score: 15 BHS Progress Note (SOAP) Subjective: nausa, sweatss, interruped sleep, anxiety, tremors Objective: 08/20/17 11:41 Vital Signs - 24 hr 08/19/17 08/19/17 08/20/17 17:25 22:31 03:30 Temperature 99.9 F H 102.7 F H Pulse Rate 106 H 107 H Respiratory 20 19 18 Rate Blood Pressure 123/65 122/75 08/20/17 08/20/17 06:45 10:00 Temperature 97.9 F 99.1 F Pulse Rate 71 113 H Respiratory 18 20 Rate Blood Pressure 104/53 104/51 Laboratory Tests 08/19/17 08/19/17 08/19/17 07:00 07:00 07:00 WBC 9.6 D RBC 4.53 Hgb 12.2 Hct 37.1 MCV 82.0 MCH 26.8 MCHC 32.7 RDW 15.3 Plt Count 192 D MPV 9.9 Sodium 136 Potassium 3.0 L Chloride 101 Carbon Dioxide 27 Anion Gap 8 BUN 15 Creatinine 1.0 Creat Clearance w eGFR > 60 Random Glucose 94 Calcium 7.9 L Total Bilirubin 0.3 D AST 12 L ALT 16 Alkaline Phosphatase 76 Total Protein 7.3 Albumin 3.3 L Urine Color Urine Appearance Urine pH Ur Specific [place] Urine Protein Urine Glucose (UA) Urine Ketones Urine Blood Urine Nitrite Urine Bilirubin Urine Urobilinogen Ur Leukocyte Esterase Urine WBC (Auto) Urine RBC (Auto) Urine Mucus RPR Titer HIV 1&2 Antibody Screen Negative HIV P24 Antigen Negative 08/19/17 08/19/17 07:00 14:00 WBC RBC Hgb Hct MCV MCH MCHC RDW Plt Count MPV Sodium Potassium Chloride Carbon Dioxide Anion Gap BUN Creatinine Creat Clearance w eGFR Random Glucose Calcium Total Bilirubin AST ALT Alkaline Phosphatase Total Protein Albumin Urine Color Yellow Urine Appearance Turbid Urine pH 5.0 Ur Specific [place] 1.034 Urine Protein 2+ H Urine Glucose (UA) Negative Urine Ketones Negative Urine Blood Negative Urine Nitrite Negative Urine Bilirubin Negative Urine Urobilinogen 2.0 H Ur Leukocyte Esterase Negative Urine WBC (Auto) None Urine RBC (Auto) None Urine Mucus Rare RPR Titer Nonreactive HIV 1&2 Antibody Screen HIV P24 Antigen hypokalemia, hypoalbuminemia Assessment: 08/20/17 11:42 withdrawal sx, hypokalemaia, continue detos, supplement k repeat labs, encourage ambualtion
[2017-08-20] MEDS ORDERED: POTASSIUM CHLORIDE TABS 20 MEQ TABLET.ER (FP) PO ONE (11:43)
[2017-08-20] MEDS ORDERED: POTASSIUM CHLORIDE TABS 20 MEQ TABLET.ER (FP) PO SCH (11:45)
[2017-08-20] MEDS: risperiDONE 2 MG TABLET PO SCH (22:19)
[2017-08-20] MEDS: PARoxetine HCL 20 MG TABLET (FP) PO SCH (22:19)
[2017-08-20] MEDS: THIAMINE HCL 100 MG TABLET (FP) PO SCH (22:19)
[2017-08-21 06:26] VITALS: BP 121/65; PULSE 80; TEMP 98.4
--- NOTE | 2017-08-21 09:15 | PN ---
BHS Progress Note (SOAP) Subjective: ALERT,IRRITABLE,ANXIOUS,INTERRUPTED SLEEP,PAIN IN THE BODY AND BACK Objective: 08/21/17 09:14 Vital Signs Temperature 98.4 F 08/21/17 06:00 Pulse Rate 80 08/21/17 06:00 Respiratory Rate 16 08/21/17 06:00 Blood Pressure 121/65 08/21/17 06:00 O2 Sat by Pulse Oximetry (%) Assessment: 08/21/17 09:15 WITHDRAWAL SYMPTOM Plan: CONTINUE DETOX
--- NOTE | 2017-08-21 09:20 | PN ---
[facility] Progress Note Note: PATIENT DID NOT WANT TO COMPLETE TREATMENT,STATED SHE HAS TO BE IN COURT,SINGED RELEASE LAAN
--- NOTE | 2017-08-21 09:24 | DS ---
[facility] Detox Discharge Summary Admission Date: 08/18/17 Discharge Date: 08/21/17 - History Present History: Cannabis Dependence, Cocaine Dependence, Opioid Dependence Additional Comments: PATIENT DID NOT WANT TO COMPLETE TREATMENT,HAS TO BE IN COURT,SEEN BY COUNSELOR, SIGNED RELEASE AMA Pertinent Past History: NICOTINE DEPENDENCE DEHYDRATION - Physical Exam Results Vital Signs: Vital Signs Temperature 98.4 F 08/21/17 06:00 Pulse Rate 80 08/21/17 06:00 Respiratory Rate 16 08/21/17 06:00 Blood Pressure 121/65 08/21/17 06:00 O2 Sat by Pulse Oximetry (%) Pertinent Admission Physical Exam Findings: WITHDRAWAL SIGNS AND SYMPTOM Vital Signs Temperature 98.4 F 08/21/17 06:00 Pulse Rate 80 08/21/17 06:00 Respiratory Rate 16 08/21/17 06:00 Blood Pressure 121/65 08/21/17 06:00 O2 Sat by Pulse Oximetry (%) Laboratory Last Values WBC 9.6 K/mm3 (4.0-10.0) D 08/19/17 07:00 RBC 4.53 M/mm3 (3.60-5.2) 08/19/17 07:00 Hgb 12.2 GM/dL (10.7-15.3) 08/19/17 07:00 Hct 37.1 % (32.4-45.2) 08/19/17 07:00 MCV 82.0 fl (80-96) 08/19/17 07:00 MCH 26.8 pg (25.7-33.7) 08/19/17 07:00 MCHC 32.7 g/dl (32.0-36.0) 08/19/17 07:00 RDW 15.3 % (11.6-15.6) 08/19/17 07:00 Plt Count 192 K/MM3 (134-434) D 08/19/17 07:00 MPV 9.9 fl (7.5-11.1) 08/19/17 07:00 Sodium 136 mmol/L (136-145) 08/19/17 07:00 Potassium 3.0 mmol/L (3.5-5.1) L 08/19/17 07:00 Chloride 101 mmol/L (98-107) 08/19/17 07:00 Carbon Dioxide 27 mmol/L (21-32) 08/19/17 07:00 Anion Gap 8 (8-16) 08/19/17 07:00 BUN 15 mg/dL (7-18) 08/19/17 07:00 Creatinine 1.0 mg/dL (0.55-1.02) 08/19/17 07:00 Creat Clearance w eGFR > 60 (>60) 08/19/17 07:00 Random Glucose 94 mg/dL (74-106) 08/19/17 07:00 Calcium 7.9 mg/dL (8.5-10.1) L 08/19/17 07:00 Total Bilirubin 0.3 mg/dL (0.2-1.0) D 08/19/17 07:00 AST 12 U/L (15-37) L 08/19/17 07:00 ALT 16 U/L (12-78) 08/19/17 07:00 Alkaline Phosphatase 76 U/L (45-117) 08/19/17 07:00 Total Protein 7.3 g/dl (6.4-8.2) 08/19/17 07:00 Albumin 3.3 g/dl (3.4-5.0) L 08/19/17 07:00 Urine Color Yellow 08/19/17 14:00 Urine Appearance Turbid 08/19/17 14:00 Urine pH 5.0 (5.0-8.0) 08/19/17 14:00 Ur Specific [place] 1.034 (1.001-1.035) 08/19/17 14:00 Urine Protein 2+ (NEGATIVE) H 08/19/17 14:00 Urine Glucose (UA) Negative (NEGATIVE) 08/19/17 14:00 Urine Ketones Negative (NEGATIVE) 08/19/17 14:00 Urine Blood Negative (NEGATIVE) 08/19/17 14:00 Urine Nitrite Negative (NEGATIVE) 08/19/17 14:00 Urine Bilirubin Negative (<2.0 mg/dL) 08/19/17 14:00 Urine Urobilinogen 2.0 mg/dL (0.2-1.0) H 08/19/17 14:00 Ur Leukocyte Esterase Negative (NEGATIVE) 08/19/17 14:00 Urine WBC (Auto) None /hpf (3-5) 08/19/17 14:00 Urine RBC (Auto) None /hpf (0-3) 08/19/17 14:00 Urine Mucus Rare 08/19/17 14:00 RPR Titer Nonreactive (NONREACTIVE) 08/19/17 07:00 HIV 1&2 Antibody Screen Negative 08/19/17 07:00 HIV P24 Antigen Negative 08/19/17 07:00 - Medication Discharge Medications: Ambulatory Orders Paroxetine HCl [Paxil -] 10 mg PO BID 08/18/17 Risperidone [Risperdal] 3 mg PO TID 08/18/17 - AMA Did Patient Leave Against Medical Advice: Yes
[2017-08-21] MEDS ORDERED: METHADONE HCL 5 MG TABLET (FOR DETOX USE ONLY) PO ONE (10:00)
[2017-08-21 10:54] LABS: CHLORIDE 101 mmol/L (98-107); POTASSIUM 3.7 mmol/L (3.5-5.1); SODIUM 135 mmol/L (136-145)
[2017-08-21 11:02] LABS: ANION GAP 6 (8-16); BLOOD UREA NITROGEN 13 mg/dL (7-18); CALCIUM 8.7 mg/dL (8.5-10.1); CO2 28 mmol/L (21-32); CREATININE 0.8 mg/dL (0.55-1.02); GLUCOSE,RANDOM 113 mg/dL (74-106)
[2017-08-22] MEDS ORDERED: METHADONE HCL 10 MG TABLET (FOR DETOX USE ONLY) PO ONE (10:00)
[2017-08-23] MEDS ORDERED: METHADONE HCL 5 MG TABLET (FOR DETOX USE ONLY) PO ONE (06:00)
== END 2017-08-21 09:00 | disposition left against medical advice (07) | DRG 770 ==
LOC: YASAS 20:19 → Y6N 21:47
PROVIDERS: ADMIT Internal Medicine; ATTEND Internal Medicine
PROC: HZ2ZZZZ Detoxification Services for Substance Abuse Treatment (ICD-10-PCS; principal; 2017-08-18)
DX: F11.23 Opioid dependence with withdrawal (principal); F10.230 Alcohol dependence with withdrawal, uncomplicated; F14.20 Cocaine dependence, uncomplicated; F12.20 Cannabis dependence, uncomplicated; F17.210 Nicotine dependence, cigarettes, uncomplicated; F31.9 Bipolar disorder, unspecified; F19.24 Other psychoactive substance dependence with psychoactive substance-induced mood disorder; E86.0 Dehydration
CPT/HCPCS: 36415; 71046-TC-FY; 80048; 80053; 81003; 81015; 85027; 86593; 87389; 93005; 93010; J2794

== ENCOUNTER 2017-12-28 22:29 | Inpatient (IN) | payer OTHER ==
[~2017-12-28 22:29] MED LIST: MELATONIN 5 MG TABLETS PO PRN
[2017-12-28 22:49] VITALS: BMI 23.9
[2017-12-28] MEDS ORDERED: METHADONE HCL 10 MG TABLET (FOR DETOX USE ONLY) PO ONE ×2 (23:00→23:45)
--- NOTE | 2017-12-28 23:43 | HP ---
COWS - Scale Resting Pulse: 0= [place] 80 or Below Sweatin= Chills/Flushing Restless Observation: 0= Sits Still Pupil Size: 0= Normal to Room Light Bone or Joint Aches: 4=Acute Joint/Muscle Pain Runny Nose/ Eye Tearin= Runny Nose/Eyes GI Upset > 30mins: 1= Stomach Cramp Tremor Observation: 2= Slight Tremor Visible Yawning Observation: 0= None Anxiety or Irritability: 4=Extreme Anxiety Goose Flesh Skin: 0=Smooth Skin COWS Score: 14 Admission [facility] Chief Complaint: Heroin withdrawal symptoms Allergies/Adverse Reactions: Allergies Allergy/AdvReac Type Severity Reaction Status Date / Time No Known Allergies Allergy Verified 12/28/17 23:04 History of Present Illness: 32 years old female with history of heroin, nicotine, cocaine, and marijuana dependence is seeking admission to detox. Patient reports medical hitory of anxiety and depression. She denies suicide attempt and suicidal / homicidal ideation at this time. She has been to detox at [facility] and reports 16 months period of sobriety. Patient reports that she is on probation for Robbery and has a year more to go. Exam Limitations: No Limitations - Ebola screening Have you traveled outside of the country in the last 21 days: No (N) Have you had contact with anyone from an Ebola affected area: No Have you been sick,other than usual withdrawal symptoms: No Do you have a fever: No - Review of Systems Constitutional: Chills, Loss of Appetite, Malaise, Weakness EENT: reports: No Symptoms Reported Respiratory: reports: No Symptoms reported Cardiac: reports: No Symptoms Reported GI: reports: Nausea, Poor Appetite, Poor Fluid Intake : reports: No Symptoms Reported Musculoskeletal: reports: No Symptoms Reported Integumentary: reports: Dryness Neuro: reports: Tremors Endocrine: reports: No Symptoms Reported Hematology: reports: No Symptoms Reported Psychiatric: reports: Anxious, Depressed Other Systems: Reviewed and Negative Patient History - Patient Medical History Hx Anemia: No Hx Asthma: No Hx Chronic Obstructive Pulmonary Disease (COPD): No Hx Cancer: No Hx Cardiac Disorders: No Hx Congestive Heart Failure: No Hx Hypertension: No Hx Hypercholesterolemia: No Hx Pacemaker: No HX Cerebrovascular Accident: No Hx Seizures: No Hx Dementia: No Hx Diabetes: No Hx Gastrointestinal Disorders: No Hx Liver Disease: No Hx Genitourinary Disorders: No Hx Sexually Transmitted Disorders: No Hx Renal Disease (ESRD): No Hx Thyroid Disease: No Hx Human Immunodeficiency Virus (HIV): No (NEG HX, last tested May 2017) Hx Hepatitis C: No Hx Depression: Yes (Paxil) Hx Suicide Attempt: No Hx Bipolar Disorder: Yes (Respidal) Hx Schizophrenia: No Other Medical History: Anxiety - Not on medication - Patient Surgical History Past Surgical History: Yes Hx Neurologic Surgery: No Hx Cataract Extraction: No Hx Cardiac Surgery: No Hx Lung Surgery: No Hx Breast Surgery: No Hx Breast Biopsy: No Hx Abdominal Surgery: No Hx Appendectomy: No Hx Cholecystectomy: No Hx Genitourinary Surgery: No Hx Section: Yes (X 3 (2011, 2013,2015)) Hx Orthopedic Surgery: No Hx Hysterectomy: No Anesthesia Reaction: No - PPD History Previous Implant?: Yes Documented Results: Negative w/proof Implanted On Prior [facility] Admission?: Yes Date: 08/20/17 Results: NEGATIVE PPD to be Administered?: No - Reproductive History Patient is a Female of Child Bearing Age (11 -55 yrs old): Yes Last Menstrual Period: 12/12/17 Patient : No - Smoking Cessation Smoking history: Current every day smoker Have you smoked in the past 12 months: Yes Aproximately how many cigarettes per day: 10 Hx Chewing Tobacco Use: No Initiated information on smoking cessation: Yes 'Breaking Loose' booklet given: 12/28/17 - Substance & Tx. History Hx Alcohol Use: No Hx Substance Use: Yes Substance Use Type: Cocaine, Heroin, Marijuana Hx Substance Use Treatment: Yes - Substances Abused Heroin Route: Inhalation Frequency: Daily Amount used: 10-15 BAGS Age of first use: 29 Date of Last Use: 12/28/17 Marijuana/Hashish Route: Smoking Frequency: Daily Amount used: $20 Age of first use: 12 Date of Last Use: 12/28/17 Cocaine Route: Inhalation Frequency: Daily Amount used: $20 Age of first use: 20 Date of Last Use: 12/26/17 Family Disease History - Family Disease History Family History: Denies Family Disease History: Other: Father (alive and well ), Mother (alive and well ) Admission Physical Exam BHS - Vital Signs Vital Signs: Vital Signs - 24 hr 12/28/17 22:46 Temperature 98.4 F Pulse Rate 69 Respiratory 18 Rate Blood Pressure 146/91 - Physical General Appearance: Yes: Moderate Distress, Tremorous, Irritable, Sweating, Anxious HEENTM: Yes: EOMI, Normal ENT Inspection, Normocephalic, Normal Voice, RICHARD Respiratory: Yes: Lungs Clear, Normal Breath Sounds, No Respiratory Distress Neck: Yes: Supple Breast: Yes: Breast Exam Deferred Cardiology: Yes: Regular Rhythm, Regular Rate Abdominal: Yes: Normal Bowel Sounds Genitourinary: Yes: Within Normal Limits Back: Yes: Normal Inspection Musculoskeletal: Yes: Back pain Extremities: Yes: Tremors Neurological: Yes: Alert, Normal Mood/Affect Integumentary: Yes: Warm Lymphatic: Yes: Within Normal Limits - Diagnostic (1) Depression Current Visit: Yes Status: Chronic Qualifiers: Depression Type: unspecified Qualified Code(s): F32.9 - Major depressive disorder, single episode, unspecified (2) Anxiety Current Visit: Yes Status: Chronic (3) Cannabis dependence, uncomplicated Current Visit: Yes Status: Chronic (4) Cocaine dependence, uncomplicated Current Visit: Yes Status: Chronic (5) Dehydration Current Visit: Yes Status: Chronic (6) Opioid dependence with withdrawal Current Visit: Yes Status: Chronic (7) Alcohol dependence with uncomplicated withdrawal Current Visit: Yes Status: Chronic (8) Nicotine dependence Current Visit: Yes Status: Chronic Qualifiers: Nicotine product type: cigarettes Cleared for Admission [facility] - Detox or Rehab [facility] Level of Care: Medically Managed Detox Regimen/Protocol: Methadone [facility] Breath Alcohol Content Breath Alcohol Content: 0 Urine Pregancy Test - Result Urine Test Results: Negative- NO Line Present Urine Drug Screen - Results Drug Screen Negative: No Urine Drug Screen Results: THC-Marijuana, LUCRECIA-Cocaine, OPI-Opiates, OXY- Oxycodone
[2017-12-28] MEDS ORDERED: NICOTINE POLACRILEX 2 MG GUM BC PRN (23:49)
[2017-12-28] MEDS ORDERED: MENTHOL/PHENOL 1 EACH UD MM PRN (23:49)
[2017-12-28] MEDS ORDERED: LOPERAMIDE HCL 2 MG CAPSULE PO PRN (23:49)
[2017-12-28] MEDS ORDERED: guaiFENesin/D-METHORPHAN HB 10 ML UNIT-DOSE CUPS PO PRN (23:49)
[2017-12-28] MEDS ORDERED: IBUPROFEN 400 MG TABLET (FP) PO PRN (23:49)
[2017-12-28] MEDS ORDERED: MAGNESIUM CITRATE 300 ML BOTTLE PO PRN (23:49)
[2017-12-28] MEDS ORDERED: MAGNESIUM HYDROX 2400MG/30ML ORAL SUSPENSION 30 ML CUP PO PRN (23:49)
[2017-12-28] MEDS ORDERED: ACETAMINOPHEN 325 MG TABLET (FP) PO PRN (23:49)
[2017-12-28] MEDS ORDERED: P-EPHED 60MG/TRIPROLIDI 2.5MG TABLET PO PRN (23:49)
[2017-12-28] MEDS ORDERED: MAG HYDROX/AL HYDROX/SIMETH 30 ML UNIT-DOSE CUP PO PRN (23:49)
[2017-12-29] MEDS ORDERED: METHADONE HCL 10 MG TABLET (FOR DETOX USE ONLY) PO ONE ×4 (00:34→23:00)
[2017-12-29] MEDS: diazePAM 5 MG TABLET PO PRN ×3 (00:58→22:05)
--- NOTE | 2017-12-29 09:15 | CONSULT ---
[facility] Psychiatric Consult - Data Date of interview: 12/29/17 Admission source: [facility] Identifying data: 32 years old female with history of heroin, nicotine, cocaine , and marijuana dependence is seeking admission to detox. Patient reports medical hitory of anxiety and depression. She denies suicide attempt and suicidal / homicidal ideation at this time. She has been to detox at [facility] and reports 16 months period of sobriety. Patient reports that she is on probation for Robbery and has a year more to go. Substance Abuse History: Smoking history: Current every day smoker. Have you smoked in the past 12 months: Yes. Aproximately how many cigarettes per day: 10. Hx Chewing Tobacco Use: No. Initiated information on smoking cessation: Yes. 'Breaking Loose' booklet given: 12/28/17. - Substance & Tx. History. Hx Alcohol Use: No. Hx Substance Use: Yes. Substance Use Type: Cocaine, Heroin, Marijuana. Hx Substance Use Treatment: Yes. - Substances Abused. Heroin. Route: Inhalation. Frequency: Daily. Amount used: 10-15 BAGS. Age of first use: 29. Date of Last Use: 12/28/17. Marijuana/Hashish. Route: Smoking. Frequency: Daily. Amount used: $20. Age of first use: 12. Date of Last Use: 12/28/17. Cocaine. Route: Inhalation. Frequency: Daily. Amount used: $ 20. Age of first use: 20. Date of Last Use: 12/26/17 Medical History: Denies significant medical issues Psychiatric History: Patient with history of Bipolar Disorder, reports psychiatric admission on 2015 at [facility] and currently bstable on: Risperdal 6mg p;o qhs. Paxil 20mg pop qhs. Denies suicidal, homicidal history Physical/Sexual Abuse/Trauma History: Denies Additional Comment: Risperdal 6mg p;o qhs. Paxil 20mg pop qhs Mental Status Exam - Mental Status Exam Alert and Oriented to: Person Cognitive Function: Fair Patient Appearance: Unkempt Mood: Apprehensive Patient Behavior: Cooperative Speech Pattern: Appropriate Voice Loudness: Normal Thought Process: Goal Oriented Hallucinations: Denies Suicidal Ideation: Denies Homicidal Ideation: Denies Insight/Judgement: Fair Sleep: Difficulty falling asleep Appetite: Fair Muscle strength/Tone: Mild Hypotonicity Gait/Station: Normal Additional Comments: Risperdal 6mg p;o qhs. Paxil 20mg pop qhs Psychiatric Findings - Problem List ([place] 1, 2,3) (1) Alcohol dependence with uncomplicated withdrawal Current Visit: Yes Status: Chronic (2) Cannabis dependence, uncomplicated Current Visit: Yes Status: Chronic (3) Cocaine dependence, uncomplicated Current Visit: Yes Status: Chronic (4) Nicotine dependence Current Visit: Yes Status: Chronic Qualifiers: Nicotine product type: cigarettes (5) Opioid dependence with withdrawal Current Visit: Yes Status: Chronic (6) Drug-induced mood disorder Current Visit: No Status: Acute (7) Bipolar affective disorder, most recent episode mixed Current Visit: No Status: Chronic (8) Bipolar disorder Current Visit: No Status: Chronic Comment: History. - Initial Treatment Plan Initial Treatment Plan: Risperdal 6mg p;o qhs. Paxil 20mg pop qhs
[2017-12-29] MEDS: NICOTINE 14 MG/24 HOURS TOPICAL PATCH TD SCH (10:35)
[2017-12-29] MEDS: PRENATAL VITAMINS W/ FOLIC ACID TABLET (FP) PO SCH (10:35)
[2017-12-29 11:23] LABS: HEMATOCRIT 34.3 % (32.4-45.2); HEMOGLOBIN 11.4 GM/dL (10.7-15.3); MCH 27.7 pg (25.7-33.7); MCHC 33.4 g/dl (32.0-36.0); MEAN CELL VOLUME 82.8 fl (80-96); MEAN PLT VOLUME 9.1 fl (7.5-11.1); PLATELET COUNT 210 K/MM3 (134-434); RBC 4.14 M/mm3 (3.60-5.2); RDW 14.6 % (11.6-15.6); WHITE BLOOD COUNT 5.2 K/mm3 (4.0-10.0)
--- NOTE | 2017-12-29 11:54 | EKG ---
Test Reason : Blood Pressure : / mmHG Vent. Rate : 063 BPM Atrial Rate : 063 BPM P-R Int : 158 ms QRS Dur : 088 ms QT Int : 410 ms P-R-T Axes : 048 059 032 degrees QTc Int : 419 ms NORMAL SINUS RHYTHM NORMAL ECG WHEN COMPARED WITH ECG OF 18-AUG-2017 22:00, VENT. RATE HAS DECREASED BY 41 BPM Confirmed by ALFREDO ALEJANDRO MD ([id number]) on 12/29/2017 11:53:39 AM Referred By: Confirmed By:ALFREDO ALEJANDRO MD
--- NOTE | 2017-12-29 13:48 | PN ---
[facility] CIWA - CIWA Score Nausea/Vomitin Muscle Tremors: 3 Anxiety: 3 Agitation: 2 Paroxysmal Sweats: 1-Minimal Palms Moist Orientation: 0-Oriented Tacttile Disturbances: 1-Very Mild Itch/Numbness Auditory Disturbances: 1-Very Mild Visual Disturbances: 0-None Headache: 2-Mild CIWA-Ar Total Score: 16 BHS COWS - Scale Resting Pulse: 0= [place] 80 or Below Sweatin= Chills/Flushing Restless Observation: 3= Extraneous Movement Pupil Size: 1= Pupils >than Normal Bone or Joint Aches: 2= Severe Diffuse Aches Runny Nose/ Eye Tearin= Runny Nose/Eyes GI Upset > 30mins: 2= Nausea/Diarrhea Tremor Observation of Outstretched Hands: 2= Slight Tremor Visible Yawning Observation: 1= 1-2x During Session Anxiety or Irritability: 2=Irritable/Anxious Goose Flesh Skin: 0=Smooth Skin COWS Score: 16 [facility] Progress Note (SOAP) Subjective: alert,irritable,anxious,interrupted sleep,pain in the body and back,tremor Objective: 12/29/17 13:45 Vital Signs Temperature 98.8 F 12/29/17 10:02 Pulse Rate 72 12/29/17 10:02 Respiratory Rate 16 12/29/17 10:02 Blood Pressure 134/91 12/29/17 10:02 O2 Sat by Pulse Oximetry (%) ekg normal sinus rhythm,normal ecg [id number] Laboratory Last Values WBC 5.2 K/mm3 (4.0-10.0) 12/29/17 07:00 RBC 4.14 M/mm3 (3.60-5.2) 12/29/17 07:00 Hgb 11.4 GM/dL (10.7-15.3) 12/29/17 07:00 Hct 34.3 % (32.4-45.2) 12/29/17 07:00 MCV 82.8 fl (80-96) 12/29/17 07:00 MCH 27.7 pg (25.7-33.7) 12/29/17 07:00 MCHC 33.4 g/dl (32.0-36.0) 12/29/17 07:00 RDW 14.6 % (11.6-15.6) 12/29/17 07:00 Plt Count 210 K/MM3 (134-434) 12/29/17 07:00 MPV 9.1 fl (7.5-11.1) 12/29/17 07:00 RPR Titer Nonreactive (NONREACTIVE) 12/29/17 07:00 HIV 1&2 Antibody Screen Negative 12/29/17 07:00 HIV P24 Antigen Negative 12/29/17 07:00 labs pending Assessment: 12/29/17 13:47 withdrawal symptom Plan: continue detox
[2017-12-29 15:47] LABS: ALBUMIN 3.3 g/dl (3.4-5.0); ANION GAP 5 (8-16); BLOOD UREA NITROGEN 10 mg/dL (7-18); CALCIUM 8.6 mg/dL (8.5-10.1); CHLORIDE 107 mmol/L (98-107); CO2 28 mmol/L (21-32); GLUCOSE,RANDOM 91 mg/dL (74-106); POTASSIUM 3.8 mmol/L (3.5-5.1); SODIUM 140 mmol/L (136-145)
[2017-12-29 15:52] LABS: ALK PHOS 70 U/L (45-117); BILIRUBIN,TOTAL 0.5 mg/dL (0.2-1.0); CREATININE 0.8 mg/dL (0.55-1.02); SGOT/AST 11 U/L (15-37); SGPT/ALT 16 U/L (12-78); TOT PROT 6.6 g/dl (6.4-8.2)
[2017-12-29] MEDS: risperiDONE 3 MG TABLET PO SCH (22:05)
[2017-12-29] MEDS: CYCLOBENZAPRINE HCL 10 MG TABLET (FP) PO PRN (22:05)
[2017-12-29] MEDS: PARoxetine HCL 20 MG TABLET (FP) PO SCH (22:05)
[2017-12-29] MEDS: THIAMINE HCL 100 MG TABLET (FP) PO SCH (22:05)
[2017-12-30] MEDS ORDERED: METHADONE HCL 10 MG TABLET (FOR DETOX USE ONLY) PO ONE (10:00)
[2017-12-30] MEDS ORDERED: METHADONE HCL 5 MG TABLET (FOR DETOX USE ONLY) PO ONE (10:00)
[2017-12-30] MEDS: PRENATAL VITAMINS W/ FOLIC ACID TABLET (FP) PO SCH (13:29)
[2017-12-30] MEDS: diazePAM 5 MG TABLET PO PRN ×2 (13:29→22:47)
[2017-12-30] MEDS: NICOTINE 14 MG/24 HOURS TOPICAL PATCH TD SCH (13:31)
--- NOTE | 2017-12-30 16:41 | PN ---
S CIWA - CIWA Score Nausea/Vomitin Muscle Tremors: 3 Anxiety: 3 Agitation: 2 Paroxysmal Sweats: 1-Minimal Palms Moist Orientation: 0-Oriented Tacttile Disturbances: 1-Very Mild Itch/Numbness Auditory Disturbances: 1-Very Mild Visual Disturbances: 0-None Headache: 2-Mild CIWA-Ar Total Score: 16 BHS COWS - Scale Resting Pulse: 0= CA 80 or Below Sweatin= Chills/Flushing Restless Observation: 3= Extraneous Movement Pupil Size: 2= Moderately Dilated Bone or Joint Aches: 2= Severe Diffuse Aches Runny Nose/ Eye Tearin= Runny Nose/Eyes GI Upset > 30mins: 2= Nausea/Diarrhea Tremor Observation of Outstretched Hands: 2= Slight Tremor Visible Yawning Observation: 1= 1-2x During Session Anxiety or Irritability: 2=Irritable/Anxious Goose Flesh Skin: 0=Smooth Skin COWS Score: 17 BHS Progress Note (SOAP) Subjective: alert,irritable,anxious,interrupted sleep,tremor,pain in the body and back Objective: 12/30/17 16:39 Vital Signs Temperature 99.0 F 12/30/17 13:32 Pulse Rate 93 H 12/30/17 13:32 Respiratory Rate 18 12/30/17 13:32 Blood Pressure 122/77 12/30/17 13:32 O2 Sat by Pulse Oximetry (%) Laboratory Last Values WBC 5.2 K/mm3 (4.0-10.0) 12/29/17 07:00 RBC 4.14 M/mm3 (3.60-5.2) 12/29/17 07:00 Hgb 11.4 GM/dL (10.7-15.3) 12/29/17 07:00 Hct 34.3 % (32.4-45.2) 12/29/17 07:00 MCV 82.8 fl (80-96) 12/29/17 07:00 MCH 27.7 pg (25.7-33.7) 12/29/17 07:00 MCHC 33.4 g/dl (32.0-36.0) 12/29/17 07:00 RDW 14.6 % (11.6-15.6) 12/29/17 07:00 Plt Count 210 K/MM3 (134-434) 12/29/17 07:00 MPV 9.1 fl (7.5-11.1) 12/29/17 07:00 Sodium 140 mmol/L (136-145) 12/29/17 07:00 Potassium 3.8 mmol/L (3.5-5.1) 12/29/17 07:00 Chloride 107 mmol/L (98-107) 12/29/17 07:00 Carbon Dioxide 28 mmol/L (21-32) 12/29/17 07:00 Anion Gap 5 (8-16) L 12/29/17 07:00 BUN 10 mg/dL (7-18) 12/29/17 07:00 Creatinine 0.8 mg/dL (0.55-1.02) 12/29/17 07:00 Creat Clearance w eGFR > 60 (>60) 12/29/17 07:00 Random Glucose 91 mg/dL (74-106) 12/29/17 07:00 Calcium 8.6 mg/dL (8.5-10.1) 12/29/17 07:00 Total Bilirubin 0.5 mg/dL (0.2-1.0) 12/29/17 07:00 AST 11 U/L (15-37) L 12/29/17 07:00 ALT 16 U/L (12-78) 12/29/17 07:00 Alkaline Phosphatase 70 U/L (45-117) 12/29/17 07:00 Total Protein 6.6 g/dl (6.4-8.2) 12/29/17 07:00 Albumin 3.3 g/dl (3.4-5.0) L 12/29/17 07:00 RPR Titer Nonreactive (NONREACTIVE) 12/29/17 07:00 HIV 1&2 Antibody Screen Negative 12/29/17 07:00 HIV P24 Antigen Negative 12/29/17 07:00 Assessment: 12/30/17 16:40 withdrawal symptom Plan: continue detox
[2017-12-30] MEDS: THIAMINE HCL 100 MG TABLET (FP) PO SCH (22:46)
[2017-12-30] MEDS: risperiDONE 3 MG TABLET PO SCH (22:47)
[2017-12-30] MEDS: PARoxetine HCL 20 MG TABLET (FP) PO SCH (22:47)
[2017-12-30] MEDS: CYCLOBENZAPRINE HCL 10 MG TABLET (FP) PO PRN (22:47)
[2017-12-31] MEDS: diazePAM 5 MG TABLET PO PRN ×3 (07:31→22:27)
[2017-12-31] MEDS ORDERED: METHADONE HCL 5 MG TABLET (FOR DETOX USE ONLY) PO ONE ×2 (10:00)
[2017-12-31] MEDS: PRENATAL VITAMINS W/ FOLIC ACID TABLET (FP) PO SCH (10:55)
[2017-12-31] MEDS: NICOTINE 14 MG/24 HOURS TOPICAL PATCH TD SCH (10:55)
[2017-12-31 11:42] LABS: URINE APPEARANCE CLOUDY; URINE BILIRUBIN NEGATIVE (<2.0 mg/dL); URINE COLOR YELLOW; URINE GLUCOSE (UA) NEGATIVE (NEGATIVE); URINE KETONE NEGATIVE (NEGATIVE); URINE LEUK ESTERASE NEGATIVE (NEGATIVE); URINE NITRITE NEGATIVE (NEGATIVE); URINE PROTEIN NEGATIVE (NEGATIVE)
--- NOTE | 2017-12-31 14:59 | PN ---
BHS Progress Note (SOAP) Subjective: alert,irritable,anxious,interrupted sleep,pain in the body and back Objective: 12/31/17 14:57 Vital Signs Temperature 98.2 F 12/31/17 10:55 Pulse Rate 119 H 12/31/17 10:55 Respiratory Rate 18 12/31/17 10:55 Blood Pressure 121/76 12/31/17 10:55 O2 Sat by Pulse Oximetry (%) Assessment: 12/31/17 14:57 withdrawal symptom Plan: continue detox
[2017-12-31] MEDS: risperiDONE 3 MG TABLET PO SCH (22:28)
[2017-12-31] MEDS: THIAMINE HCL 100 MG TABLET (FP) PO SCH (22:28)
[2017-12-31] MEDS: PARoxetine HCL 20 MG TABLET (FP) PO SCH (22:28)
[2018-01-01] MEDS ORDERED: METHADONE HCL 10 MG TABLET (FOR DETOX USE ONLY) PO ONE (10:00)
[2018-01-01] MEDS ORDERED: METHADONE HCL 5 MG TABLET (FOR DETOX USE ONLY) PO ONE (10:00)
[2018-01-01] MEDS: PRENATAL VITAMINS W/ FOLIC ACID TABLET (FP) PO SCH (10:33)
[2018-01-01] MEDS: NICOTINE 14 MG/24 HOURS TOPICAL PATCH TD SCH (10:34)
--- NOTE | 2018-01-01 11:46 | PN ---
BHS Progress Note (SOAP) Subjective: pt without complaints, going to rehab at [facility] Objective: 01/01/18 11:38 Vital Signs - 24 hr 12/31/17 12/31/17 12/31/17 14:00 19:02 22:40 Temperature 98.8 F 98.4 F 98.6 F Pulse Rate 108 H 86 93 H Respiratory 16 18 18 Rate Blood Pressure 123/72 104/63 121/76 01/01/18 01/01/18 01/01/18 00:30 03:30 07:30 Temperature 97.5 F L Pulse Rate 75 Respiratory 16 16 18 Rate Blood Pressure 108/60 01/01/18 10:45 Temperature 98.2 F Pulse Rate 105 H Respiratory 16 Rate Blood Pressure 116/70 Laboratory Tests 12/29/17 12/29/17 12/29/17 07:00 07:00 07:00 WBC 5.2 RBC 4.14 Hgb 11.4 Hct 34.3 MCV 82.8 MCH 27.7 MCHC 33.4 RDW 14.6 Plt Count 210 MPV 9.1 Sodium 140 Potassium 3.8 Chloride 107 Carbon Dioxide 28 Anion Gap 5 L BUN 10 Creatinine 0.8 Creat Clearance w eGFR > 60 Random Glucose 91 Calcium 8.6 Total Bilirubin 0.5 AST 11 L ALT 16 Alkaline Phosphatase 70 Total Protein 6.6 Albumin 3.3 L Urine Color Urine Appearance Urine pH Ur Specific [place] Urine Protein Urine Glucose (UA) Urine Ketones Urine Blood Urine Nitrite Urine Bilirubin Urine Urobilinogen Ur Leukocyte Esterase RPR Titer HIV 1&2 Antibody Screen Negative HIV P24 Antigen Negative 12/29/17 12/31/17 07:00 08:00 WBC RBC Hgb Hct MCV MCH MCHC RDW Plt Count MPV Sodium Potassium Chloride Carbon Dioxide Anion Gap BUN Creatinine Creat Clearance w eGFR Random Glucose Calcium Total Bilirubin AST ALT Alkaline Phosphatase Total Protein Albumin Urine Color Yellow Urine Appearance Cloudy Urine pH 6.0 Ur Specific [place] 1.020 Urine Protein Negative Urine Glucose (UA) Negative Urine Ketones Negative Urine Blood Negative Urine Nitrite Negative Urine Bilirubin Negative Urine Urobilinogen 2.0 H Ur Leukocyte Esterase Negative RPR Titer Nonreactive HIV 1&2 Antibody Screen HIV P24 Antigen mild tachy- pt without complaints and nl labs Assessment: 01/01/18 11:46 32 years old female with history of heroin, nicotine, cocaine, and marijuana dependence is here for heroin detox. Plan: continue detox protocol
[2018-01-01] MEDS: risperiDONE 3 MG TABLET PO SCH (22:29)
[2018-01-01] MEDS: PARoxetine HCL 20 MG TABLET (FP) PO SCH (22:29)
[2018-01-01] MEDS: CYCLOBENZAPRINE HCL 10 MG TABLET (FP) PO PRN (22:29)
[2018-01-01] MEDS: THIAMINE HCL 100 MG TABLET (FP) PO SCH (22:29)
[2018-01-02] MEDS ORDERED: METHADONE HCL 5 MG TABLET (FOR DETOX USE ONLY) PO ONE (06:00)
[2018-01-02] MEDS ORDERED: METHADONE HCL 10 MG TABLET (FOR DETOX USE ONLY) PO ONE (10:00)
[2018-01-02] MEDS: PRENATAL VITAMINS W/ FOLIC ACID TABLET (FP) PO SCH (10:55)
[2018-01-02] MEDS: NICOTINE 14 MG/24 HOURS TOPICAL PATCH TD SCH (10:56)
--- NOTE | 2018-01-02 15:36 | PN ---
BHS Progress Note (SOAP) Subjective: pt states feeling fine Objective: 01/02/18 15:35 Vital Signs - 24 hr 01/01/18 01/01/18 01/02/18 17:54 22:52 00:30 Temperature 97.8 F 98.2 F Pulse Rate 85 96 H Respiratory 18 18 18 Rate Blood Pressure 106/64 119/78 01/02/18 01/02/18 01/02/18 03:30 06:38 10:19 Temperature 97.7 F 97.7 F Pulse Rate 70 80 Respiratory 16 16 18 Rate Blood Pressure 112/62 129/75 Laboratory Tests 12/29/17 12/29/17 12/29/17 07:00 07:00 07:00 WBC 5.2 RBC 4.14 Hgb 11.4 Hct 34.3 MCV 82.8 MCH 27.7 MCHC 33.4 RDW 14.6 Plt Count 210 MPV 9.1 Sodium 140 Potassium 3.8 Chloride 107 Carbon Dioxide 28 Anion Gap 5 L BUN 10 Creatinine 0.8 Creat Clearance w eGFR > 60 Random Glucose 91 Calcium 8.6 Total Bilirubin 0.5 AST 11 L ALT 16 Alkaline Phosphatase 70 Total Protein 6.6 Albumin 3.3 L Urine Color Urine Appearance Urine pH Ur Specific [place] Urine Protein Urine Glucose (UA) Urine Ketones Urine Blood Urine Nitrite Urine Bilirubin Urine Urobilinogen Ur Leukocyte Esterase RPR Titer HIV 1&2 Antibody Screen Negative HIV P24 Antigen Negative 12/29/17 12/31/17 07:00 08:00 WBC RBC Hgb Hct MCV MCH MCHC RDW Plt Count MPV Sodium Potassium Chloride Carbon Dioxide Anion Gap BUN Creatinine Creat Clearance w eGFR Random Glucose Calcium Total Bilirubin AST ALT Alkaline Phosphatase Total Protein Albumin Urine Color Yellow Urine Appearance Cloudy Urine pH 6.0 Ur Specific Stem 1.020 Urine Protein Negative Urine Glucose (UA) Negative Urine Ketones Negative Urine Blood Negative Urine Nitrite Negative Urine Bilirubin Negative Urine Urobilinogen 2.0 H Ur Leukocyte Esterase Negative RPR Titer Nonreactive HIV 1&2 Antibody Screen HIV P24 Antigen nl VS mild anemia Assessment: 01/02/18 15:35 32 years old female with history of heroin, nicotine, cocaine, and marijuana dependence is here for detox. Plan: continue detox protocol
[2018-01-02] MEDS: THIAMINE HCL 100 MG TABLET (FP) PO SCH (22:35)
[2018-01-02] MEDS: risperiDONE 3 MG TABLET PO SCH (22:35)
[2018-01-02] MEDS: PARoxetine HCL 20 MG TABLET (FP) PO SCH (22:35)
[2018-01-02] MEDS: CYCLOBENZAPRINE HCL 10 MG TABLET (FP) PO PRN (22:35)
[2018-01-03] MEDS ORDERED: METHADONE HCL 5 MG TABLET (FOR DETOX USE ONLY) PO ONE (06:00)
[2018-01-03 09:11] VITALS: BP 121/70; PULSE 100; TEMP 98.1
--- NOTE | 2018-01-03 12:12 | PN ---
S Progress Note (SOAP) Subjective: Denies any complaint Objective: 01/03/18 12:10 A & O x 3 Vital Signs Temperature 98.1 F 01/03/18 09:10 Pulse Rate 100 H 01/03/18 09:10 Respiratory Rate 17 01/03/18 09:10 Blood Pressure 121/70 01/03/18 09:10 O2 Sat by Pulse Oximetry (%) Assessment: 01/03/18 12:11 Detox safely completed In no acute distress Plan: For discharge
--- NOTE | 2018-01-03 12:15 | DS ---
[facility] Detox Discharge Summary Admission Date: 12/28/17 Discharge Date: 01/03/18 - History Additional Comments: Pt discharged. Pt states she will go home today, to [facility] on friday - Physical Exam Results Vital Signs: Vital Signs Temperature 98.1 F 01/03/18 09:10 Pulse Rate 100 H 01/03/18 09:10 Respiratory Rate 17 01/03/18 09:10 Blood Pressure 121/70 01/03/18 09:10 O2 Sat by Pulse Oximetry (%) Pertinent Admission Physical Exam Findings: withdrawal sx - Treatment Hospital Course: Detox Protocol Followed, Detoxed Safely, Responded well, Discharged Condition Good, Rehab Referral Accepted Patient has Accepted a Rehab Referral to: [facility] - Medication Discharge Medications: Ambulatory Orders Paroxetine HCl [Paxil -] 20 mg PO HS 08/18/17 Paroxetine HCl [Paxil -] 20 mg PO HS #30 tablet 12/29/17 Risperidone [Risperdal] 6 mg PO DAILY #30 tablet 12/29/17 - Diagnosis (1) Drug-induced mood disorder Status: Acute (2) Alcohol dependence with uncomplicated withdrawal Status: Chronic (3) Anxiety Status: Chronic (4) Bipolar disorder Status: Chronic (5) Cannabis dependence, uncomplicated Status: Chronic (6) Cocaine dependence, uncomplicated Status: Chronic (7) Dehydration Status: Chronic (8) Depression Status: Chronic Qualifiers: Depression Type: unspecified Qualified Code(s): F32.9 - Major depressive disorder, single episode, unspecified (9) Nicotine dependence Status: Chronic Qualifiers: Nicotine product type: cigarettes (10) Opioid dependence with withdrawal Status: Chronic - AMA Did Patient Leave Against Medical Advice: No
== END 2018-01-03 09:28 | disposition home or self-care (01) | DRG 773 ==
LOC: YASAS 22:29 → Y6N 23:43
PROVIDERS: ADMIT Surgery; ATTEND Surgery
PROC: HZ2ZZZZ Detoxification Services for Substance Abuse Treatment (ICD-10-PCS; principal; 2017-12-28)
DX: F11.23 Opioid dependence with withdrawal (principal); F10.230 Alcohol dependence with withdrawal, uncomplicated; F14.20 Cocaine dependence, uncomplicated; F12.20 Cannabis dependence, uncomplicated; F17.210 Nicotine dependence, cigarettes, uncomplicated; F41.9 Anxiety disorder, unspecified; F31.9 Bipolar disorder, unspecified; F32.9 Major depressive disorder, single episode, unspecified; F19.24 Other psychoactive substance dependence with psychoactive substance-induced mood disorder; E86.0 Dehydration; D64.9 Anemia, unspecified
CPT/HCPCS: 36415; 80053; 81003; 85027; 86593; 87389; 93005; 93010

== ENCOUNTER 2020-10-25 18:08 | Inpatient (IN) | payer OTHER ==
[2020-10-25 18:27] VITALS: BMI 22.9
[2020-10-25] MEDS ORDERED: P-EPHED 60MG/TRIPROLIDI 2.5MG TABLET PO PRN (21:02)
[2020-10-25] MEDS ORDERED: IBUPROFEN 400 MG TABLET (FP) PO PRN (21:02)
[2020-10-25] MEDS ORDERED: NALOXONE HCL 0.4 MG/ML VIAL IM PRN (21:02)
[2020-10-25] MEDS ORDERED: ACETAMINOPHEN 325 MG TABLET (FP) PO PRN ×2 (21:02)
[2020-10-25] MEDS ORDERED: MAGNESIUM CITRATE 300 ML BOTTLE PO PRN (21:02)
[2020-10-25] MEDS ORDERED: NICOTINE POLACRILEX 2 MG GUM BUC PRN (21:02)
[2020-10-25] MEDS ORDERED: METHOCARBAMOL 500 MG TABLET PO PRN (21:02)
[2020-10-25] MEDS ORDERED: hydrOXYzine PAMOATE 25 MG CAPSULE (FP) PO PRN (21:02)
[2020-10-25] MEDS ORDERED: guaiFENesin 200 MG/10 ML 10 ML UNIT-DOSE CUPS PO PRN (21:02)
[2020-10-25] MEDS ORDERED: DICYCLOMINE HCL 10 MG CAPSULE PO PRN (21:02)
[2020-10-25] MEDS ORDERED: METHADONE HCL 10 MG TABLET (FOR DETOX USE ONLY) PO ONE ×2 (21:02→23:45)
[2020-10-25] MEDS ORDERED: MENTHOL/PHENOL 1 EACH UD MM PRN (21:02)
[2020-10-25] MEDS ORDERED: BISMUTH SUBSALICYLATE 524 MG/30 ML PO PRN (21:02)
[2020-10-25] MEDS ORDERED: cloNIDine HCL 0.1 MG TABLET PO PRN (21:02)
[2020-10-25] MEDS ORDERED: MAGNESIUM HYDROX 2400MG/30ML ORAL SUSPENSION 30 ML CUP PO PRN (21:02)
[2020-10-25] MEDS ORDERED: MAG HYDROX/AL HYDROX/SIMETH 30 ML UNIT-DOSE CUP PO PRN (21:02)
[2020-10-25] MEDS ORDERED: NALOXONE (NARCAN) HCL 4 MG/0.1 ML SPRAY NS PRN (21:02)
[2020-10-25] MEDS ORDERED: METHADONE HCL 10 MG TABLET (FOR DETOX USE ONLY) ONE (23:50)
[2020-10-26] MEDS: MELATONIN 5 MG TABLETS PO SCH ×2 (01:03→22:35)
[2020-10-26] MEDS: THIAMINE HCL 100 MG TABLET (FP) PO SCH ×2 (01:04→23:06)
[2020-10-26] MEDS ORDERED: METHADONE (DETOX) 20 MG, METHADONE (DETOX) 5 MG PO ONE (10:00)
[2020-10-26] MEDS ORDERED: METHADONE HCL 10 MG TABLET (FOR DETOX USE ONLY) ONE (11:08)
[2020-10-26] MEDS ORDERED: METHADONE HCL 5 MG TABLET (FOR DETOX USE ONLY) ONE (11:08)
[2020-10-26] MEDS: PRENATAL VITAMINS W/ FOLIC ACID TABLET (FP) PO SCH (11:09)
[2020-10-26] MEDS: NICOTINE 21 MG/24 HOURS TOPICAL PATCH TD SCH (11:09)
[2020-10-26 11:23] LABS: CALCIUM 8.9 mg/dL (8.5-10.1)
[2020-10-26 11:24] LABS: BLOOD UREA NITROGEN 16.5 mg/dL (7-18)
[2020-10-26 11:25] LABS: ALBUMIN 3.2 g/dl (3.4-5.0)
[2020-10-26 11:27] LABS: CREATININE 0.7 mg/dL (0.55-1.3)
[2020-10-26 11:28] LABS: BILIRUBIN,TOTAL 1.1 mg/dL (0.2-1)
[2020-10-26 11:29] LABS: TOT PROT 6.6 g/dl (6.4-8.2)
[2020-10-26 11:30] LABS: HEMATOCRIT 33.9 % (32.4-45.2); HEMOGLOBIN 11.1 GM/dL (10.7-15.3); MCH 27.4 pg (25.7-33.7); MCHC 32.9 g/dl (32.0-36.0); MEAN CELL VOLUME 83.3 fl (80-96); MEAN PLT VOLUME 8.8 fl (7.5-11.1); PLATELET COUNT 250 K/MM3 (134-434); RBC 4.07 M/mm3 (3.60-5.2); RDW 14.4 % (11.6-15.6); WHITE BLOOD COUNT 5.8 K/mm3 (4.0-10.0)
[2020-10-26 12:15] LABS: HIV INTERPRETATION NEGATIVE (NEGATIVE)
[2020-10-26] MEDS: ONDANSETRON *ODT* 4 MG TABLET SL PRN ×2 (13:31→22:37)
[2020-10-26] MEDS ORDERED: ONDANSETRON *ODT* 4 MG TABLET SL ONE (13:45)
[2020-10-26] MEDS ORDERED: METHADONE HCL 5 MG TABLET (FOR DETOX USE ONLY) PO ONE (23:00)
[2020-10-27 07:11] VITALS: TEMP 98.6
[2020-10-27 09:20] VITALS: BP 132/89; PULSE 68
[2020-10-27] MEDS: NICOTINE 21 MG/24 HOURS TOPICAL PATCH TD SCH (09:35)
[2020-10-27] MEDS: PRENATAL VITAMINS W/ FOLIC ACID TABLET (FP) PO SCH (09:35)
[2020-10-27] MEDS ORDERED: METHADONE HCL 10 MG TABLET (FOR DETOX USE ONLY) PO ONE (10:00)
[2020-10-28] MEDS ORDERED: METHADONE (DETOX) 10 MG, METHADONE (DETOX) 5 MG PO ONE (10:00)
[2020-10-29] MEDS ORDERED: METHADONE HCL 10 MG TABLET (FOR DETOX USE ONLY) PO ONE (10:00)
[2020-10-30] MEDS ORDERED: METHADONE HCL 5 MG TABLET (FOR DETOX USE ONLY) PO ONE (06:00)
== END 2020-10-27 11:31 | disposition left against medical advice (07) | DRG 770 ==
LOC: YASAS 18:08 → Y6N 22:23
PROVIDERS: ADMIT Allergy & Immunology; ATTEND Allergy & Immunology
PROC: HZ2ZZZZ Detoxification Services for Substance Abuse Treatment (ICD-10-PCS; principal; 2020-10-25)
DX: F11.23 Opioid dependence with withdrawal (principal); F14.20 Cocaine dependence, uncomplicated; F17.210 Nicotine dependence, cigarettes, uncomplicated; F19.24 Other psychoactive substance dependence with psychoactive substance-induced mood disorder; F31.9 Bipolar disorder, unspecified; R45.89 Other symptoms and signs involving emotional state
CPT/HCPCS: 36415; 80053; 81025; 85027; 86780; 87389; 93005; 93010; C9803; J0735; Q0162; U0003; U0005